=== PATIENT | female | born 1985 | race Caucasian/White ===

== ENCOUNTER 2020-08-14 12:39 | Outpatient (CLI) | payer MEDICAID | END 2020-08-14 23:59 | disposition home or self-care (01) | LOC: WOUND 12:39 | PROVIDERS: ATTEND Internal Medicine | DX: S81.831A Puncture wound without foreign body, right lower leg, initial encounter (principal); L97.212 Non-pressure chronic ulcer of right calf with fat layer exposed; I89.0 Lymphedema, not elsewhere classified; L84 Corns and callosities; E66.01 Morbid (severe) obesity due to excess calories; Z68.44 Body mass index [BMI] 60.0-69.9, adult; Z91.19 Patient's noncompliance with other medical treatment and regimen; X58.XXXA Exposure to other specified factors, initial encounter; Y93.89 Activity, other specified; Y92.89 Other specified places as the place of occurrence of the external cause; Y99.8 Other external cause status | CPT/HCPCS: 97597; 97598; 99205 ==

== ENCOUNTER → 2020-08-21 | Outpatient (CLI) | payer MEDICAID | END | disposition home or self-care (01) | LOC: WOUND 13:03 | PROVIDERS: ATTEND Internal Medicine | DX: S81.831D Puncture wound without foreign body, right lower leg, subsequent encounter (principal); L97.212 Non-pressure chronic ulcer of right calf with fat layer exposed; I89.0 Lymphedema, not elsewhere classified; E66.01 Morbid (severe) obesity due to excess calories; Z68.44 Body mass index [BMI] 60.0-69.9, adult; X58.XXXD Exposure to other specified factors, subsequent encounter | CPT/HCPCS: 97597; 97598 ==

== ENCOUNTER → 2020-08-28 | Outpatient (CLI) | payer MEDICAID | END | disposition home or self-care (01) | LOC: WOUND 12:47 | PROVIDERS: ATTEND Internal Medicine | DX: S81.831D Puncture wound without foreign body, right lower leg, subsequent encounter (principal); L97.212 Non-pressure chronic ulcer of right calf with fat layer exposed; I89.0 Lymphedema, not elsewhere classified; L84 Corns and callosities; E66.01 Morbid (severe) obesity due to excess calories; Z68.44 Body mass index [BMI] 60.0-69.9, adult; Z91.19 Patient's noncompliance with other medical treatment and regimen; X58.XXXD Exposure to other specified factors, subsequent encounter | CPT/HCPCS: 97597; 97598 ==

== ENCOUNTER 2020-09-04 12:44 | Outpatient (CLI) | payer MEDICAID | END 2020-09-04 23:59 | disposition home or self-care (01) | LOC: WOUND 12:44 | PROVIDERS: ATTEND Internal Medicine | DX: S81.831D Puncture wound without foreign body, right lower leg, subsequent encounter (principal); L97.212 Non-pressure chronic ulcer of right calf with fat layer exposed; I89.0 Lymphedema, not elsewhere classified; L84 Corns and callosities; E66.01 Morbid (severe) obesity due to excess calories; Z68.44 Body mass index [BMI] 60.0-69.9, adult; Z91.19 Patient's noncompliance with other medical treatment and regimen; X58.XXXD Exposure to other specified factors, subsequent encounter | CPT/HCPCS: 97597; 97598 ==

== ENCOUNTER 2020-09-11 12:44 | Outpatient (CLI) | payer MEDICAID | END 2020-09-11 23:59 | disposition home or self-care (01) | LOC: WOUND 12:44 | PROVIDERS: ATTEND Internal Medicine | DX: S81.831D Puncture wound without foreign body, right lower leg, subsequent encounter (principal); L97.212 Non-pressure chronic ulcer of right calf with fat layer exposed; I89.0 Lymphedema, not elsewhere classified; L84 Corns and callosities; E66.01 Morbid (severe) obesity due to excess calories; Z68.44 Body mass index [BMI] 60.0-69.9, adult; Z91.19 Patient's noncompliance with other medical treatment and regimen; X58.XXXD Exposure to other specified factors, subsequent encounter | CPT/HCPCS: 97597; 97598 ==

== ENCOUNTER → 2020-09-25 | Outpatient (CLI) | payer MEDICAID | END | disposition home or self-care (01) | LOC: WOUND 13:19 | PROVIDERS: ATTEND Internal Medicine | DX: S81.831D Puncture wound without foreign body, right lower leg, subsequent encounter (principal); L97.212 Non-pressure chronic ulcer of right calf with fat layer exposed; I89.0 Lymphedema, not elsewhere classified; L84 Corns and callosities; E66.01 Morbid (severe) obesity due to excess calories; Z68.44 Body mass index [BMI] 60.0-69.9, adult; Z91.19 Patient's noncompliance with other medical treatment and regimen; X58.XXXD Exposure to other specified factors, subsequent encounter | CPT/HCPCS: 97597; 97598 ==

== ENCOUNTER → 2020-09-29 | Outpatient (CLI) | payer MEDICAID | END | disposition home or self-care (01) | LOC: WOUND 08:03 | PROVIDERS: ATTEND Internal Medicine | DX: S81.831D Puncture wound without foreign body, right lower leg, subsequent encounter (principal); L97.212 Non-pressure chronic ulcer of right calf with fat layer exposed; I89.0 Lymphedema, not elsewhere classified; L84 Corns and callosities; E66.01 Morbid (severe) obesity due to excess calories; Z68.44 Body mass index [BMI] 60.0-69.9, adult; Z91.19 Patient's noncompliance with other medical treatment and regimen; X58.XXXD Exposure to other specified factors, subsequent encounter | CPT/HCPCS: 97606 ==

== ENCOUNTER 2020-10-02 08:06 | Outpatient (CLI) | payer MEDICAID | END 2020-10-02 23:59 | disposition home or self-care (01) | LOC: WOUND 08:06 | PROVIDERS: ATTEND Internal Medicine | DX: S81.831D Puncture wound without foreign body, right lower leg, subsequent encounter (principal); L97.212 Non-pressure chronic ulcer of right calf with fat layer exposed; I89.0 Lymphedema, not elsewhere classified; L84 Corns and callosities; E66.01 Morbid (severe) obesity due to excess calories; Z68.44 Body mass index [BMI] 60.0-69.9, adult; Z91.19 Patient's noncompliance with other medical treatment and regimen; X58.XXXD Exposure to other specified factors, subsequent encounter | CPT/HCPCS: 97597; 97598 ==

== ENCOUNTER → 2020-10-04 | Outpatient (CLI) | payer MEDICAID | END | disposition home or self-care (01) | LOC: WOUND 08:07 | PROVIDERS: ATTEND Internal Medicine | DX: S81.831D Puncture wound without foreign body, right lower leg, subsequent encounter (principal); L97.212 Non-pressure chronic ulcer of right calf with fat layer exposed; I89.0 Lymphedema, not elsewhere classified; L84 Corns and callosities; E66.01 Morbid (severe) obesity due to excess calories; Z68.44 Body mass index [BMI] 60.0-69.9, adult; Z91.19 Patient's noncompliance with other medical treatment and regimen; X58.XXXD Exposure to other specified factors, subsequent encounter | CPT/HCPCS: 97606 ==

== ENCOUNTER 2020-10-06 08:04 | Outpatient (CLI) | payer MEDICAID | END 2020-10-06 23:59 | disposition home or self-care (01) | LOC: WOUND 08:04 | PROVIDERS: ATTEND Internal Medicine | DX: S81.831D Puncture wound without foreign body, right lower leg, subsequent encounter (principal); L97.212 Non-pressure chronic ulcer of right calf with fat layer exposed; L97.822 Non-pressure chronic ulcer of other part of left lower leg with fat layer exposed; I89.0 Lymphedema, not elsewhere classified; L84 Corns and callosities; E66.01 Morbid (severe) obesity due to excess calories; I87.8 Other specified disorders of veins; Z68.44 Body mass index [BMI] 60.0-69.9, adult; Z91.19 Patient's noncompliance with other medical treatment and regimen; X58.XXXD Exposure to other specified factors, subsequent encounter | CPT/HCPCS: 97606; 99214 ==

== ENCOUNTER 2020-10-09 08:30 | Outpatient (CLI) | payer MEDICAID | END 2020-10-09 23:59 | disposition home or self-care (01) | LOC: WOUND 08:30 | PROVIDERS: ATTEND Internal Medicine | DX: S81.831D Puncture wound without foreign body, right lower leg, subsequent encounter (principal); L97.212 Non-pressure chronic ulcer of right calf with fat layer exposed; I89.0 Lymphedema, not elsewhere classified; L84 Corns and callosities; E66.01 Morbid (severe) obesity due to excess calories; Z68.44 Body mass index [BMI] 60.0-69.9, adult; Z91.19 Patient's noncompliance with other medical treatment and regimen; X58.XXXD Exposure to other specified factors, subsequent encounter | CPT/HCPCS: 97597; 97598 ==

== ENCOUNTER → 2020-10-16 | Outpatient (CLI) | payer MEDICAID | END | disposition home or self-care (01) | LOC: WOUND 08:19 | PROVIDERS: ATTEND Internal Medicine | DX: S81.831D Puncture wound without foreign body, right lower leg, subsequent encounter (principal); L97.212 Non-pressure chronic ulcer of right calf with fat layer exposed; L97.822 Non-pressure chronic ulcer of other part of left lower leg with fat layer exposed; I89.0 Lymphedema, not elsewhere classified; I87.8 Other specified disorders of veins; L84 Corns and callosities; E66.01 Morbid (severe) obesity due to excess calories; Z68.44 Body mass index [BMI] 60.0-69.9, adult; Z91.19 Patient's noncompliance with other medical treatment and regimen; X58.XXXD Exposure to other specified factors, subsequent encounter | CPT/HCPCS: 87070; 87075; 87077; 87147; 87205; 97597; 97598 ==

== ENCOUNTER 2020-10-23 09:10 | Inpatient (IN) | payer MEDICAID ==
[~2020-10-23] VITALS: Ht 182.9 cm; Wt 227.0 kg
[2020-10-23 11:05] LABS: BASOPHILS % (AUTO) 1 % (0-1); EOSINOPHILS % (AUTO) 1 % (1-7); LYMPHOCYTES % (AUTO) 23 % (22-44); MEAN CORPUSCULAR HEMOGLOBIN 29.7 pg (27.0-34.8); MEAN CORPUSCULAR HGB CONC 33.2 g/dL (32.4-35.8); MEAN PLATELET VOLUME 8.1 fL (7.4-10.4); MONOCYTES % (AUTO) 6 % (2-9); NEUTROPHILS % (AUTO) 69 % (42-75); PLATELET COUNT 273 x10^3/uL (130-400); RED BLOOD COUNT 3.94 x10^6/uL (3.82-5.3); RED CELL DISTRIBUTION WIDTH 15.5 % (9.6-15.2)
[2020-10-23 11:14] LABS: ALBUMIN 3.7 g/dL (3.4-5.0); ANION GAP 7 mmol/L (5-15); CALCIUM 9.8 mg/dL (8.5-10.1); CHLORIDE 110 mmol/L (98-107)
--- NOTE | 2020-10-23 11:25 | NUR ---
RESIDENTIAL SERVICE TECHNICIAN: PT AMBULATORY TO ROOM FROM LOBBY AT THIS TIME
--- NOTE | 2020-10-23 12:10 | NUR ---
MD Bauer to bedside for eval.
[2020-10-23] MEDS ORDERED: CLINDAMYCIN PMX 600MG/50ML 50 ML ONE ×2 (12:27→12:35)
[2020-10-23] MEDS ORDERED: PIPERACILLIN/TAZO 3.375 GM in DEXTROSE 5% 50 ML IVPB ONE (12:30)
[2020-10-23] MEDS ORDERED: CLINDAMYCIN PMX 600MG/50ML 50 ML IVPB ONE (12:30)
[2020-10-23] MEDS ORDERED: SODIUM CHLORIDE FLUSH 10ML SYR IVF PRN (13:00)
[2020-10-23 13:34] VITALS: BP 125/85
[2020-10-23 13:43] VITALS: BP 125/85
[2020-10-23] MEDS: PIPERACILLIN/TAZO 4.5 GM in DEXTROSE 5% 100 ML IVPB SCH ×2 (14:05→20:15)
[2020-10-23] MEDS ORDERED: FURO20TA3 PO (14:18)
[2020-10-23] MEDS ORDERED: ACET500T76 PO (14:18)
[2020-10-23] MEDS ORDERED: GABA600T7 PO (14:18)
[2020-10-23] MEDS ORDERED: BACL-19 PO (14:18)
[2020-10-23] MEDS ORDERED: IBUP-1222 PO (14:18)
[2020-10-23] MEDS ORDERED: BUSP10TA PO (14:32)
[2020-10-23] MEDS ORDERED: DICL50TA4 PO (14:32)
[2020-10-23] MEDS ORDERED: HYDR1TAB53 PO (14:32)
[2020-10-23] MEDS ORDERED: POLYETHYLENE GLYCOL 17 GM PACKET PO PRN (15:30)
[2020-10-23] MEDS ORDERED: MELATONIN 5 MG TABLET PO PRN (15:30)
[2020-10-23] MEDS ORDERED: ONDANSETRON 2MG/ML, 2ML IVPush PRN (15:30)
[2020-10-23] MEDS: ENOXAPARIN 30 MG/0.3 ML SQ SCH (16:10)
[2020-10-23] MEDS: BACLOFEN 10 MG TABLET PO SCH ×2 (16:10→20:23)
[2020-10-23] MEDS: BUSPIRONE 10 MG TABLET PO SCH ×2 (16:10→20:23)
[2020-10-23] MEDS: HYDROcodone/APAP 10/325 MG TABLET PO PRN (16:10)
[2020-10-23] MEDS: GABAPENTIN 300 MG CAPSULE PO SCH ×2 (16:10→20:23)
[2020-10-23 19:44] VITALS: BP 143/82
[2020-10-23] MEDS: IBUPROFEN 600 MG TABLET PO PRN (20:32)
[2020-10-23] MEDS: ACETAMINOPHEN 325 MG TABLET PO PRN (20:32)
[2020-10-24 00:25] VITALS: BP 134/88
[2020-10-24] MEDS: HYDROcodone/APAP 10/325 MG TABLET PO PRN ×2 (00:28→07:33)
[2020-10-24] MEDS: PIPERACILLIN/TAZO 4.5 GM in DEXTROSE 5% 100 ML IVPB SCH ×4 (02:39→21:00)
[2020-10-24] MEDS: ENOXAPARIN 30 MG/0.3 ML SQ SCH ×2 (04:00→16:00)
[2020-10-24] MEDS: KETOROLAC 30 MG/1 ML IV PRN (04:09)
[2020-10-24 06:56] VITALS: BP 107/73
[2020-10-24] MEDS: GABAPENTIN 300 MG CAPSULE PO SCH ×3 (08:37→21:00)
[2020-10-24] MEDS: SENNA/DOCUSATE TABLET PO SCH (08:37)
[2020-10-24] MEDS: BACLOFEN 10 MG TABLET PO SCH ×3 (08:37→21:00)
[2020-10-24] MEDS: BUSPIRONE 10 MG TABLET PO SCH ×3 (08:37→21:00)
[2020-10-24] MEDS: IBUPROFEN 600 MG TABLET PO PRN (08:56)
[2020-10-24] MEDS: ACETAMINOPHEN 325 MG TABLET PO PRN ×3 (08:56→16:32)
[2020-10-24] MEDS ORDERED: FUROSEMIDE 20 MG TABLET PO SCH (09:00)
[2020-10-24 12:52] VITALS: BP 114/68
[2020-10-24] MEDS: FUROSEMIDE 40 MG/4 ML IV SCH (16:33)
[2020-10-24 20:56] VITALS: BP 132/84
[2020-10-25] MEDS: PIPERACILLIN/TAZO 4.5 GM in DEXTROSE 5% 100 ML IVPB SCH ×4 (00:45→18:25)
[2020-10-25 01:23] VITALS: BP 111/70
[2020-10-25] MEDS: ENOXAPARIN 30 MG/0.3 ML SQ SCH ×2 (04:00→16:00)
[2020-10-25 05:39] LABS: CALCIUM 8.6 mg/dL (8.5-10.1); CHLORIDE 111 mmol/L (98-107)
[2020-10-25 05:42] LABS: ANION GAP 8 mmol/L (5-15); CREATININE 0.79 mg/dL (0.55-1.02)
[2020-10-25 07:07] VITALS: BP 143/73
[2020-10-25] MEDS: GABAPENTIN 300 MG CAPSULE PO SCH ×3 (08:05→20:19)
[2020-10-25] MEDS: ACETAMINOPHEN 325 MG TABLET PO PRN ×2 (08:05→16:59)
[2020-10-25] MEDS: BUSPIRONE 10 MG TABLET PO SCH ×3 (08:06→20:19)
[2020-10-25] MEDS: SENNA/DOCUSATE TABLET PO SCH (08:06)
[2020-10-25] MEDS: FUROSEMIDE 40 MG/4 ML IV SCH ×2 (08:06→17:00)
[2020-10-25] MEDS: BACLOFEN 10 MG TABLET PO SCH ×3 (08:06→20:19)
[2020-10-25] MEDS: POTASSIUM CHLORIDE 20 MEQ TAB.ER.PRT PO SCH ×3 (08:06→16:59)
[2020-10-25] MEDS: KETOROLAC 30 MG/1 ML IV PRN (08:06)
[2020-10-25 13:26] VITALS: BP 135/80
[2020-10-25 20:09] VITALS: BP 134/83
[2020-10-26] MEDS: ENOXAPARIN 30 MG/0.3 ML SQ SCH ×2 (00:15→11:57)
[2020-10-26] MEDS: PIPERACILLIN/TAZO 4.5 GM in DEXTROSE 5% 100 ML IVPB SCH ×2 (00:15→06:30)
[2020-10-26 00:20] VITALS: BP 100/65
[2020-10-26 05:53] LABS: ANION GAP 5 mmol/L (5-15); CALCIUM 8.7 mg/dL (8.5-10.1); CHLORIDE 112 mmol/L (98-107)
[2020-10-26 07:16] VITALS: BP 108/71
[2020-10-26] MEDS: FUROSEMIDE 40 MG/4 ML IV SCH ×2 (09:07→16:45)
[2020-10-26] MEDS: POTASSIUM CHLORIDE 20 MEQ TAB.ER.PRT PO SCH ×3 (09:07→16:45)
[2020-10-26] MEDS: GABAPENTIN 300 MG CAPSULE PO SCH ×3 (09:07→19:58)
[2020-10-26] MEDS: ACETAMINOPHEN 325 MG TABLET PO PRN ×2 (09:07→16:45)
[2020-10-26] MEDS: IBUPROFEN 600 MG TABLET PO PRN ×2 (09:07→16:45)
[2020-10-26] MEDS: SENNA/DOCUSATE TABLET PO SCH ×2 (09:07→09:12)
[2020-10-26] MEDS: BUSPIRONE 10 MG TABLET PO SCH ×3 (09:08→19:58)
[2020-10-26] MEDS: BACLOFEN 10 MG TABLET PO SCH ×3 (09:09→19:58)
[2020-10-26] MEDS: KETOROLAC 30 MG/1 ML IV PRN (10:46)
[2020-10-26] MEDS ORDERED: MEROPENEM 1 GM in SODIUM CHLORIDE 0.9% 100 ML IV SCH (11:00)
[2020-10-26] MEDS: MEROPENEM 2 GM in SODIUM CHLORIDE 0.9% 100 ML IV SCH ×2 (11:57→19:57)
[2020-10-26 13:10] VITALS: BP 135/91
[2020-10-26 20:03] VITALS: BP 138/88
[2020-10-27 01:23] VITALS: BP 104/69
[2020-10-27] MEDS: ACETAMINOPHEN 325 MG TABLET PO PRN ×2 (02:23→12:54)
[2020-10-27] MEDS: IBUPROFEN 600 MG TABLET PO PRN ×2 (02:23→12:54)
[2020-10-27] MEDS: MEROPENEM 2 GM in SODIUM CHLORIDE 0.9% 100 ML IV SCH ×3 (03:20→19:54)
[2020-10-27] MEDS: ENOXAPARIN 30 MG/0.3 ML SQ SCH ×2 (03:23→15:38)
[2020-10-27 04:32] LABS: HCT (SEDRATE) 31.8 % (34.6-47.8)
[2020-10-27 04:43] LABS: ANION GAP 8 mmol/L (5-15); CALCIUM 8.6 mg/dL (8.5-10.1); CHLORIDE 108 mmol/L (98-107); CREATININE 0.79 mg/dL (0.55-1.02)
[2020-10-27 04:50] LABS: C-REACTIVE PROTEIN, QUANT 1.9 mg/dL (0.02-0.49)
[2020-10-27 06:25] VITALS: BP 116/74
[2020-10-27] MEDS: GABAPENTIN 300 MG CAPSULE PO SCH ×3 (07:53→19:54)
[2020-10-27] MEDS: POTASSIUM CHLORIDE 20 MEQ TAB.ER.PRT PO SCH ×3 (07:53→16:45)
[2020-10-27] MEDS: FUROSEMIDE 40 MG/4 ML IV SCH ×2 (07:53→16:46)
[2020-10-27] MEDS: BACLOFEN 10 MG TABLET PO SCH ×3 (07:53→19:54)
[2020-10-27] MEDS: SENNA/DOCUSATE TABLET PO SCH (07:53)
[2020-10-27] MEDS: BUSPIRONE 10 MG TABLET PO SCH ×3 (07:53→19:54)
[2020-10-27 13:52] VITALS: BP 110/71
[2020-10-27] MEDS ORDERED: DIAPER RASH/ZINC OXIDE PASTE 40%, 56GM TP PRN (15:30)
[2020-10-27 19:10] VITALS: BP 99/66
[2020-10-28 00:12] VITALS: BP 117/78
[2020-10-28] MEDS: ENOXAPARIN 30 MG/0.3 ML SQ SCH ×2 (04:00→15:29)
[2020-10-28] MEDS: MEROPENEM 2 GM in SODIUM CHLORIDE 0.9% 100 ML IV SCH ×3 (04:13→22:06)
[2020-10-28 07:15] VITALS: BP 129/78
[2020-10-28] MEDS: GABAPENTIN 300 MG CAPSULE PO SCH ×3 (07:47→21:31)
[2020-10-28] MEDS: BACLOFEN 10 MG TABLET PO SCH ×3 (07:47→21:31)
[2020-10-28] MEDS: POTASSIUM CHLORIDE 20 MEQ TAB.ER.PRT PO SCH ×3 (07:47→17:06)
[2020-10-28] MEDS: BUSPIRONE 10 MG TABLET PO SCH ×3 (07:48→21:31)
[2020-10-28] MEDS: FUROSEMIDE 40 MG/4 ML IV SCH ×2 (07:48→17:06)
[2020-10-28] MEDS: metFORMIN XR 500 MG TAB.ER.24H PO SCH (07:48)
[2020-10-28] MEDS: SENNA/DOCUSATE TABLET PO SCH (07:48)
[2020-10-28] MEDS: ACETAMINOPHEN 325 MG TABLET PO PRN (08:30)
[2020-10-28] MEDS: IBUPROFEN 600 MG TABLET PO PRN ×2 (08:30→21:31)
[2020-10-28] MEDS ORDERED: CHOLESTYRAMINE LIGHT 4GM PACKET PO SCH (09:00)
[2020-10-28 09:37] LABS: ANION GAP 6 mmol/L (5-15); CALCIUM 9.7 mg/dL (8.5-10.1); CHLORIDE 107 mmol/L (98-107); CREATININE 0.91 mg/dL (0.55-1.02)
[2020-10-28] MEDS ORDERED: PINK BISMUTH 87.33 MG/5 ML ORAL SUSP PO PRN (12:00)
[2020-10-28 13:34] VITALS: BP 138/73
[2020-10-28 19:27] VITALS: BP 135/83
[2020-10-29 01:10] VITALS: BP 121/72
[2020-10-29] MEDS: ENOXAPARIN 30 MG/0.3 ML SQ SCH ×2 (03:14→16:00)
[2020-10-29] MEDS: MEROPENEM 2 GM in SODIUM CHLORIDE 0.9% 100 ML IV SCH ×3 (06:42→21:59)
[2020-10-29 07:00] VITALS: BP 105/61
[2020-10-29] MEDS: POTASSIUM CHLORIDE 20 MEQ TAB.ER.PRT PO SCH ×3 (07:51→16:02)
[2020-10-29] MEDS: BUSPIRONE 10 MG TABLET PO SCH ×3 (07:51→21:59)
[2020-10-29] MEDS: FUROSEMIDE 40 MG/4 ML IV SCH ×2 (07:51→16:02)
[2020-10-29] MEDS: SENNA/DOCUSATE TABLET PO SCH (07:51)
[2020-10-29] MEDS: BACLOFEN 10 MG TABLET PO SCH ×3 (07:52→21:59)
[2020-10-29] MEDS: metFORMIN XR 500 MG TAB.ER.24H PO SCH (07:52)
[2020-10-29] MEDS: GABAPENTIN 300 MG CAPSULE PO SCH ×3 (07:52→21:59)
[2020-10-29] MEDS: IBUPROFEN 600 MG TABLET PO PRN (08:00)
[2020-10-29] MEDS: ACETAMINOPHEN 325 MG TABLET PO PRN ×2 (08:01→14:22)
[2020-10-29 12:20] LABS: ANION GAP 6 mmol/L (5-15); CALCIUM 9.5 mg/dL (8.5-10.1); CHLORIDE 106 mmol/L (98-107); CREATININE 0.86 mg/dL (0.55-1.02)
[2020-10-29 15:44] VITALS: BP 116/68
[2020-10-29 19:59] VITALS: BP 132/84
[2020-10-30 02:13] VITALS: BP 106/71
[2020-10-30] MEDS: ENOXAPARIN 30 MG/0.3 ML SQ SCH ×2 (03:21→16:00)
[2020-10-30] MEDS: MEROPENEM 2 GM in SODIUM CHLORIDE 0.9% 100 ML IV SCH ×2 (05:54→17:35)
[2020-10-30 06:01] LABS: HCT (SEDRATE) 34.6 % (34.6-47.8)
[2020-10-30 06:06] LABS: CHLORIDE 104 mmol/L (98-107)
[2020-10-30 06:19] LABS: BASOPHILS % (AUTO) 0 % (0-1); EOSINOPHILS % (AUTO) 4 % (1-7); LYMPHOCYTES % (AUTO) 25 % (22-44); MEAN CORPUSCULAR HEMOGLOBIN 30.1 pg (27.0-34.8); MEAN CORPUSCULAR HGB CONC 33.7 g/dL (32.4-35.8); MEAN PLATELET VOLUME 8.4 fL (7.4-10.4); MONOCYTES % (AUTO) 11 % (2-9); NEUTROPHILS % (AUTO) 61 % (42-75); PLATELET COUNT 256 x10^3/uL (130-400); RED CELL DISTRIBUTION WIDTH 15.4 % (9.6-15.2)
[2020-10-30 06:26] LABS: ALANINE AMINOTRANSFERASE 121 U/L (12-78); ALBUMIN 3.5 g/dL (3.4-5.0); ALKALINE PHOSPHATASE 108 U/L (45-117); ANION GAP 5 mmol/L (5-15); BILIRUBIN,TOTAL 0.3 mg/dL (0.2-1.0); CREATININE 0.88 mg/dL (0.55-1.02); TOTAL PROTEIN 7.6 g/dL (6.4-8.2)
[2020-10-30 06:53] VITALS: BP 128/81
[2020-10-30] MEDS: FUROSEMIDE 40 MG/4 ML IV SCH ×2 (08:53→16:38)
[2020-10-30] MEDS: metFORMIN XR 500 MG TAB.ER.24H PO SCH (08:53)
[2020-10-30] MEDS: POTASSIUM CHLORIDE 20 MEQ TAB.ER.PRT PO SCH ×3 (08:53→16:38)
[2020-10-30] MEDS: BUSPIRONE 10 MG TABLET PO SCH ×3 (08:54→22:04)
[2020-10-30] MEDS: SENNA/DOCUSATE TABLET PO SCH (08:54)
[2020-10-30] MEDS: GABAPENTIN 300 MG CAPSULE PO SCH ×3 (08:54→22:04)
[2020-10-30] MEDS: BACLOFEN 10 MG TABLET PO SCH ×3 (08:54→22:04)
[2020-10-30 15:43] VITALS: BP 117/82
[2020-10-30 19:32] VITALS: BP 119/78
[2020-10-31 00:53] VITALS: BP 142/76
[2020-10-31] MEDS: MEROPENEM 2 GM in SODIUM CHLORIDE 0.9% 100 ML IV SCH ×3 (01:09→18:35)
[2020-10-31] MEDS: ENOXAPARIN 30 MG/0.3 ML SQ SCH ×2 (04:00→16:00)
[2020-10-31 05:15] LABS: ANION GAP 6 mmol/L (5-15); CHLORIDE 104 mmol/L (98-107)
[2020-10-31 05:16] LABS: CREATININE 0.93 mg/dL (0.55-1.02)
[2020-10-31 07:37] VITALS: BP 142/89
[2020-10-31] MEDS: FUROSEMIDE 40 MG/4 ML IV SCH ×2 (08:08→17:11)
[2020-10-31] MEDS: metFORMIN XR 500 MG TAB.ER.24H PO SCH (08:09)
[2020-10-31] MEDS: POTASSIUM CHLORIDE 20 MEQ TAB.ER.PRT PO SCH ×3 (08:09→17:11)
[2020-10-31] MEDS: SENNA/DOCUSATE TABLET PO SCH (09:00)
[2020-10-31] MEDS: BUSPIRONE 10 MG TABLET PO SCH ×3 (09:48→21:18)
[2020-10-31] MEDS: GABAPENTIN 300 MG CAPSULE PO SCH ×3 (09:49→21:18)
[2020-10-31] MEDS: BACLOFEN 10 MG TABLET PO SCH ×3 (09:49→21:18)
[2020-10-31 12:18] VITALS: BP 118/80
[2020-10-31] MEDS: IBUPROFEN 600 MG TABLET PO PRN (15:57)
[2020-10-31] MEDS: ACETAMINOPHEN 325 MG TABLET PO PRN (15:57)
[2020-10-31 18:59] VITALS: BP 105/75
[2020-11-01 00:23] VITALS: BP 121/84
[2020-11-01] MEDS: MEROPENEM 2 GM in SODIUM CHLORIDE 0.9% 100 ML IV SCH ×3 (02:23→19:40)
[2020-11-01] MEDS: ENOXAPARIN 30 MG/0.3 ML SQ SCH ×2 (03:52→16:00)
[2020-11-01 07:31] VITALS: BP 119/70
[2020-11-01] MEDS: metFORMIN XR 500 MG TAB.ER.24H PO SCH (08:11)
[2020-11-01] MEDS: SENNA/DOCUSATE TABLET PO SCH (09:00)
[2020-11-01] MEDS: BACLOFEN 10 MG TABLET PO SCH ×3 (09:05→19:40)
[2020-11-01] MEDS: GABAPENTIN 300 MG CAPSULE PO SCH ×3 (09:05→19:40)
[2020-11-01] MEDS: BUSPIRONE 10 MG TABLET PO SCH ×3 (09:05→19:40)
[2020-11-01 12:25] VITALS: BP 135/88
[2020-11-01] MEDS: ACETAMINOPHEN 325 MG TABLET PO PRN (16:44)
[2020-11-01] MEDS: IBUPROFEN 600 MG TABLET PO PRN (16:44)
[2020-11-01 19:08] VITALS: BP 135/85
[2020-11-02 02:44] VITALS: BP 107/75
[2020-11-02] MEDS: MEROPENEM 2 GM in SODIUM CHLORIDE 0.9% 100 ML IV SCH ×3 (03:11→21:36)
[2020-11-02] MEDS: ENOXAPARIN 30 MG/0.3 ML SQ SCH ×2 (03:27→16:00)
[2020-11-02 07:54] VITALS: BP 117/74
[2020-11-02] MEDS: SENNA/DOCUSATE TABLET PO SCH (09:00)
[2020-11-02] MEDS: GABAPENTIN 300 MG CAPSULE PO SCH ×3 (10:10→21:21)
[2020-11-02] MEDS: metFORMIN XR 500 MG TAB.ER.24H PO SCH (10:10)
[2020-11-02] MEDS: BACLOFEN 10 MG TABLET PO SCH ×3 (10:11→21:21)
[2020-11-02] MEDS: BUSPIRONE 10 MG TABLET PO SCH ×3 (10:46→21:21)
[2020-11-02 13:52] VITALS: BP 139/82
[2020-11-02 19:58] VITALS: BP 110/66
[2020-11-02] MEDS: IBUPROFEN 600 MG TABLET PO PRN (21:26)
[2020-11-02] MEDS: ACETAMINOPHEN 325 MG TABLET PO PRN (21:26)
[2020-11-03 01:17] VITALS: BP 94/66
[2020-11-03] MEDS: ENOXAPARIN 30 MG/0.3 ML SQ SCH ×2 (04:00→15:42)
[2020-11-03 07:19] VITALS: BP 114/73
[2020-11-03] MEDS: MEROPENEM 2 GM in SODIUM CHLORIDE 0.9% 100 ML IV SCH ×3 (07:21→23:26)
[2020-11-03] MEDS: metFORMIN XR 500 MG TAB.ER.24H PO SCH (08:03)
[2020-11-03] MEDS: ACETAMINOPHEN 325 MG TABLET PO PRN (08:03)
[2020-11-03] MEDS: BACLOFEN 10 MG TABLET PO SCH ×3 (08:04→21:00)
[2020-11-03] MEDS: SENNA/DOCUSATE TABLET PO SCH (08:04)
[2020-11-03] MEDS: IBUPROFEN 600 MG TABLET PO PRN (08:04)
[2020-11-03] MEDS: GABAPENTIN 300 MG CAPSULE PO SCH ×3 (08:04→21:00)
[2020-11-03] MEDS: BUSPIRONE 10 MG TABLET PO SCH ×3 (08:04→21:00)
[2020-11-03 13:52] VITALS: BP 125/71
[2020-11-03 19:25] VITALS: BP 112/77
[2020-11-04] MEDS: ENOXAPARIN 30 MG/0.3 ML SQ SCH ×2 (03:42→15:10)
[2020-11-04 04:22] VITALS: BP 119/79
[2020-11-04 07:33] VITALS: BP 129/81
[2020-11-04] MEDS: MEROPENEM 2 GM in SODIUM CHLORIDE 0.9% 100 ML IV SCH ×3 (07:59→23:44)
[2020-11-04] MEDS: GABAPENTIN 300 MG CAPSULE PO SCH ×3 (08:02→21:53)
[2020-11-04] MEDS: BACLOFEN 10 MG TABLET PO SCH ×3 (08:03→21:53)
[2020-11-04] MEDS: metFORMIN XR 500 MG TAB.ER.24H PO SCH (08:03)
[2020-11-04] MEDS: BUSPIRONE 10 MG TABLET PO SCH ×3 (08:03→21:53)
[2020-11-04] MEDS: SENNA/DOCUSATE TABLET PO SCH (08:03)
[2020-11-04 14:16] VITALS: BP 103/65
[2020-11-04 20:03] VITALS: BP 135/88
[2020-11-05 02:03] VITALS: BP 108/71
[2020-11-05] MEDS: ENOXAPARIN 30 MG/0.3 ML SQ SCH ×2 (03:57→15:29)
[2020-11-05 05:23] LABS: CREATININE 0.68 mg/dL (0.55-1.02)
[2020-11-05 07:17] VITALS: BP 96/64
[2020-11-05] MEDS: MEROPENEM 2 GM in SODIUM CHLORIDE 0.9% 100 ML IV SCH ×3 (08:03→23:40)
[2020-11-05] MEDS: GABAPENTIN 300 MG CAPSULE PO SCH ×3 (08:06→20:44)
[2020-11-05] MEDS: metFORMIN XR 500 MG TAB.ER.24H PO SCH (08:06)
[2020-11-05] MEDS: BUSPIRONE 10 MG TABLET PO SCH ×3 (08:06→20:45)
[2020-11-05] MEDS: BACLOFEN 10 MG TABLET PO SCH ×3 (08:06→20:45)
[2020-11-05] MEDS: SENNA/DOCUSATE TABLET PO SCH (08:07)
[2020-11-05 20:46] VITALS: BP 126/75
[2020-11-06 01:04] VITALS: BP 106/69
[2020-11-06] MEDS: ENOXAPARIN 30 MG/0.3 ML SQ SCH ×2 (03:52→16:00)
[2020-11-06 07:36] VITALS: BP 100/68
[2020-11-06] MEDS: SENNA/DOCUSATE TABLET PO SCH (07:51)
[2020-11-06] MEDS: BUSPIRONE 10 MG TABLET PO SCH ×3 (07:51→20:20)
[2020-11-06] MEDS: metFORMIN XR 500 MG TAB.ER.24H PO SCH (07:51)
[2020-11-06] MEDS: GABAPENTIN 300 MG CAPSULE PO SCH ×3 (07:51→20:20)
[2020-11-06] MEDS: BACLOFEN 10 MG TABLET PO SCH ×3 (07:51→20:20)
[2020-11-06] MEDS: MEROPENEM 2 GM in SODIUM CHLORIDE 0.9% 100 ML IV SCH ×2 (08:54→16:15)
[2020-11-06 13:04] VITALS: BP 135/83
[2020-11-06 19:23] VITALS: BP 127/68
[2020-11-07] MEDS: MEROPENEM 2 GM in SODIUM CHLORIDE 0.9% 100 ML IV SCH ×3 (00:05→15:56)
[2020-11-07 01:10] VITALS: BP 104/66
[2020-11-07] MEDS: ENOXAPARIN 30 MG/0.3 ML SQ SCH ×2 (04:28→15:57)
[2020-11-07] MEDS: SENNA/DOCUSATE TABLET PO SCH (08:05)
[2020-11-07] MEDS: BACLOFEN 10 MG TABLET PO SCH ×3 (08:11→20:07)
[2020-11-07] MEDS: GABAPENTIN 300 MG CAPSULE PO SCH ×3 (08:11→20:07)
[2020-11-07] MEDS: metFORMIN XR 500 MG TAB.ER.24H PO SCH (08:11)
[2020-11-07] MEDS: BUSPIRONE 10 MG TABLET PO SCH ×3 (08:11→20:07)
[2020-11-07] MEDS: IBUPROFEN 600 MG TABLET PO PRN (08:11)
[2020-11-07 08:22] VITALS: BP 118/75
[2020-11-07 14:07] VITALS: BP 113/75
[2020-11-07 19:09] VITALS: BP 136/78
[2020-11-08] MEDS: MEROPENEM 2 GM in SODIUM CHLORIDE 0.9% 100 ML IV SCH ×4 (00:08→23:45)
[2020-11-08 00:49] VITALS: BP 126/83
[2020-11-08] MEDS: ENOXAPARIN 30 MG/0.3 ML SQ SCH ×2 (04:00→15:40)
[2020-11-08 05:50] LABS: CREATININE 0.81 mg/dL (0.55-1.02)
[2020-11-08 06:38] VITALS: BP 124/82
[2020-11-08] MEDS: BACLOFEN 10 MG TABLET PO SCH ×3 (08:36→20:15)
[2020-11-08] MEDS: ACETAMINOPHEN 325 MG TABLET PO PRN (08:36)
[2020-11-08] MEDS: metFORMIN XR 500 MG TAB.ER.24H PO SCH (08:36)
[2020-11-08] MEDS: GABAPENTIN 300 MG CAPSULE PO SCH ×3 (08:36→20:15)
[2020-11-08] MEDS: BUSPIRONE 10 MG TABLET PO SCH ×3 (08:36→20:15)
[2020-11-08] MEDS: IBUPROFEN 600 MG TABLET PO PRN (08:36)
[2020-11-08] MEDS: SENNA/DOCUSATE TABLET PO SCH (08:39)
[2020-11-08 13:22] VITALS: BP 103/67
[2020-11-08 19:10] VITALS: BP 133/90
[2020-11-09 00:20] VITALS: BP 118/74
[2020-11-09 01:10] VITALS: BP 129/80
[2020-11-09] MEDS: ENOXAPARIN 30 MG/0.3 ML SQ SCH ×2 (04:25→15:19)
[2020-11-09 07:40] VITALS: BP 130/83
[2020-11-09] MEDS: BACLOFEN 10 MG TABLET PO SCH ×2 (07:59→15:46)
[2020-11-09] MEDS: GABAPENTIN 300 MG CAPSULE PO SCH ×2 (07:59→15:46)
[2020-11-09] MEDS: metFORMIN XR 500 MG TAB.ER.24H PO SCH (07:59)
[2020-11-09] MEDS: SENNA/DOCUSATE TABLET PO SCH (07:59)
[2020-11-09] MEDS: BUSPIRONE 10 MG TABLET PO SCH ×2 (07:59→15:46)
[2020-11-09] MEDS: MEROPENEM 2 GM in SODIUM CHLORIDE 0.9% 100 ML IV SCH ×2 (07:59→15:46)
[2020-11-09] MEDS ORDERED: METF500T3 PO (08:04)
[2020-11-09 13:52] VITALS: BP 142/83
== END 2020-11-09 17:33 | disposition home or self-care (01) | DRG 383 ==
LOC: ED 12:04 → SUATTDRO 12:32 → 3N 13:30 → ED 15:28
PROVIDERS: ADMIT Internal Medicine; ATTEND Family Medicine
DX: L03.115 Cellulitis of right lower limb (principal); E66.01 Morbid (severe) obesity due to excess calories; B96.5 Pseudomonas (aeruginosa) (mallei) (pseudomallei) as the cause of diseases classified elsewhere; F11.20 Opioid dependence, uncomplicated; F41.9 Anxiety disorder, unspecified; G89.29 Other chronic pain; I87.8 Other specified disorders of veins; I10 Essential (primary) hypertension; L97.219 Non-pressure chronic ulcer of right calf with unspecified severity; L97.229 Non-pressure chronic ulcer of left calf with unspecified severity; Z16.23 Resistance to quinolones and fluoroquinolones; Z16.24 Resistance to multiple antibiotics; Z68.44 Body mass index [BMI] 60.0-69.9, adult; Z16.11 Resistance to penicillins
CPT/HCPCS: 36415; 73590; 84145; 96374; 99285; C8929; 80048; 80053; 82040; 82565; 83036; 83605; 83735; 83880; 84100; 85025; 85651; 86140; 87040; G0378; J1885; J1940; J2185; J2543; Q9957

== ENCOUNTER → 2020-10-23 | Outpatient (CLI) | payer MEDICAID ==
[~2020-10-23] MED LIST: ACET500T76 PO; BACL-19 PO; BUSP10TA PO; DICL50TA4 PO; FURO20TA3 PO; GABA600T7 PO; HYDR1TAB53 PO; IBUP-1222 PO
== END | disposition home or self-care (01) ==
LOC: WOUND 08:14
PROVIDERS: ATTEND Internal Medicine
DX: S81.831D Puncture wound without foreign body, right lower leg, subsequent encounter (principal); L97.821 Non-pressure chronic ulcer of other part of left lower leg limited to breakdown of skin; L97.212 Non-pressure chronic ulcer of right calf with fat layer exposed; I89.0 Lymphedema, not elsewhere classified; I87.8 Other specified disorders of veins; L84 Corns and callosities; E66.01 Morbid (severe) obesity due to excess calories; Z68.44 Body mass index [BMI] 60.0-69.9, adult; Z91.19 Patient's noncompliance with other medical treatment and regimen; X58.XXXD Exposure to other specified factors, subsequent encounter
CPT/HCPCS: 97597; 97598

== ENCOUNTER → 2020-11-13 | Outpatient (CLI) | payer MEDICAID ==
[~2020-11-13] MED LIST changes: +METF500T3 PO
== END | disposition home or self-care (01) ==
LOC: WOUND 08:05
PROVIDERS: ATTEND Internal Medicine
DX: S81.831D Puncture wound without foreign body, right lower leg, subsequent encounter (principal); L97.821 Non-pressure chronic ulcer of other part of left lower leg limited to breakdown of skin; L97.212 Non-pressure chronic ulcer of right calf with fat layer exposed; I89.0 Lymphedema, not elsewhere classified; I87.8 Other specified disorders of veins; L84 Corns and callosities; I10 Essential (primary) hypertension; F11.20 Opioid dependence, uncomplicated; G89.29 Other chronic pain; E66.01 Morbid (severe) obesity due to excess calories; Z68.44 Body mass index [BMI] 60.0-69.9, adult; Z91.19 Patient's noncompliance with other medical treatment and regimen; X58.XXXD Exposure to other specified factors, subsequent encounter
CPT/HCPCS: 29581

== ENCOUNTER 2020-11-20 11:14 | Inpatient (IN) | payer MEDICAID ==
[~2020-11-20] VITALS: Ht 182.9 cm; Wt 226.0 kg
[2020-11-20 12:04] LABS: BASOPHILS % (AUTO) 1 % (0-1); EOSINOPHILS % (AUTO) 1 % (1-7); LYMPHOCYTES % (AUTO) 19 % (22-44); MEAN CORPUSCULAR HEMOGLOBIN 29.8 pg (27.0-34.8); MEAN CORPUSCULAR HGB CONC 33.2 g/dL (32.4-35.8); MEAN PLATELET VOLUME 8.2 fL (7.4-10.4); MONOCYTES % (AUTO) 6 % (2-9); NEUTROPHILS % (AUTO) 73 % (42-75); PLATELET COUNT 257 x10^3/uL (130-400); RED CELL DISTRIBUTION WIDTH 14.5 % (9.6-15.2)
[2020-11-20 12:18] LABS: ALBUMIN 3.2 g/dL (3.4-5.0); ANION GAP 9 mmol/L (5-15); CALCIUM 8.5 mg/dL (8.5-10.1); CHLORIDE 112 mmol/L (98-107); CREATININE 0.89 mg/dL (0.55-1.02)
--- NOTE | 2020-11-20 12:38 | NUR ---
HIM SPECIALIST: PT TO ROOM FROM LOBBY
[2020-11-20] MEDS ORDERED: PIPERACILLIN/TAZO 4.5 GM in DEXTROSE 5% 100 ML IVPB ONE (14:00)
--- NOTE | 2020-11-20 14:07 | NUR ---
PT STATES "[facility] DOES NOT WORK FOR ME, I KNOW IT ISN'T GOING TO FIX THIS." EDMD AWARE. NO NEW ORDERS.
[2020-11-20 15:08] VITALS: BP 164/106
[2020-11-20 15:20] VITALS: BP 141/84
[2020-11-20] MEDS ORDERED: POLYETHYLENE GLYCOL 17 GM PACKET PO PRN (16:00)
[2020-11-20] MEDS ORDERED: ONDANSETRON 2MG/ML, 2ML IVPush PRN (16:00)
[2020-11-20] MEDS ORDERED: ONDANSETRON ODT 4 MG PO PRN (16:00)
[2020-11-20] MEDS: SODIUM CHLORIDE 0.9% 1,000 ML IV SCH (17:42)
[2020-11-20] MEDS: ZINC SULFATE 220 MG CAPSULE PO SCH (17:43)
[2020-11-20] MEDS: MULTIVITAMIN 1 TABLET PO SCH (17:43)
[2020-11-20] MEDS: ENOXAPARIN 30 MG/0.3 ML SQ SCH (17:43)
[2020-11-20] MEDS: MEROPENEM 1 GM in SODIUM CHLORIDE 0.9% 100 ML IV SCH (17:43)
[2020-11-20] MEDS: FUROSEMIDE 40 MG/4 ML IV SCH (17:43)
[2020-11-20] MEDS: ASCORBIC ACID 500 MG TABLET PO SCH (17:43)
[2020-11-20 20:22] VITALS: BP 139/85
[2020-11-20] MEDS: GABAPENTIN 300 MG CAPSULE PO SCH (22:51)
[2020-11-20] MEDS: ACETAMINOPHEN 325 MG TABLET PO PRN (22:52)
[2020-11-21 01:03] VITALS: BP 106/72
[2020-11-21] MEDS: SODIUM CHLORIDE 0.9% 1,000 ML IV SCH ×2 (01:33→07:30)
[2020-11-21] MEDS: MEROPENEM 1 GM in SODIUM CHLORIDE 0.9% 100 ML IV SCH ×3 (01:33→17:03)
[2020-11-21] MEDS: ENOXAPARIN 30 MG/0.3 ML SQ SCH ×2 (03:14→15:07)
[2020-11-21 05:35] LABS: HCT (SEDRATE) 30.4 % (34.6-47.8)
[2020-11-21 05:37] LABS: BASOPHILS % (AUTO) 1 % (0-1); EOSINOPHILS % (AUTO) 3 % (1-7); LYMPHOCYTES % (AUTO) 23 % (22-44); MEAN CORPUSCULAR HEMOGLOBIN 29.9 pg (27.0-34.8); MEAN CORPUSCULAR HGB CONC 33.4 g/dL (32.4-35.8); MEAN PLATELET VOLUME 8.3 fL (7.4-10.4); MONOCYTES % (AUTO) 10 % (2-9); NEUTROPHILS % (AUTO) 64 % (42-75); PLATELET COUNT 212 x10^3/uL (130-400); RED BLOOD COUNT 3.41 x10^6/uL (3.82-5.3); RED CELL DISTRIBUTION WIDTH 14.8 % (9.6-15.2)
[2020-11-21 05:45] LABS: ALANINE AMINOTRANSFERASE 25 U/L (12-78); ALBUMIN 2.8 g/dL (3.4-5.0); ANION GAP 7 mmol/L (5-15); CALCIUM 8.4 mg/dL (8.5-10.1); CHLORIDE 114 mmol/L (98-107)
[2020-11-21 05:51] LABS: ALKALINE PHOSPHATASE 78 U/L (45-117); BILIRUBIN,TOTAL 0.3 mg/dL (0.2-1.0); CREATININE 0.79 mg/dL (0.55-1.02); TOTAL PROTEIN 6.9 g/dL (6.4-8.2)
[2020-11-21 06:30] VITALS: BP 116/87
[2020-11-21] MEDS: HYDROcodone/APAP 5/325 TABLET PO PRN (06:42)
[2020-11-21] MEDS: GABAPENTIN 300 MG CAPSULE PO SCH ×3 (09:35→20:57)
[2020-11-21] MEDS: ZINC SULFATE 220 MG CAPSULE PO SCH (09:36)
[2020-11-21] MEDS: SENNA/DOCUSATE TABLET PO SCH (09:36)
[2020-11-21] MEDS: MULTIVITAMIN 1 TABLET PO SCH (09:36)
[2020-11-21] MEDS: BUSPIRONE 10 MG TABLET PO SCH (09:36)
[2020-11-21] MEDS: FUROSEMIDE 40 MG/4 ML IV SCH (09:36)
[2020-11-21] MEDS: ASCORBIC ACID 500 MG TABLET PO SCH ×2 (09:36→15:25)
[2020-11-21] MEDS: metFORMIN XR 500 MG TAB.ER.24H PO SCH (09:36)
[2020-11-21] MEDS: POTASSIUM CHLORIDE 20 MEQ TAB.ER.PRT PO SCH ×2 (09:40→15:25)
[2020-11-21 13:50] VITALS: BP 104/71
[2020-11-21] MEDS: ACETAMINOPHEN 325 MG TABLET PO PRN ×2 (14:01→20:57)
[2020-11-21 19:17] VITALS: BP 122/79
[2020-11-22 01:05] VITALS: BP 136/82
[2020-11-22] MEDS: MEROPENEM 1 GM in SODIUM CHLORIDE 0.9% 100 ML IV SCH (01:36)
[2020-11-22] MEDS: ENOXAPARIN 30 MG/0.3 ML SQ SCH ×2 (03:53→16:00)
[2020-11-22] MEDS: SENNA/DOCUSATE TABLET PO SCH (08:42)
[2020-11-22] MEDS: GABAPENTIN 300 MG CAPSULE PO SCH ×3 (08:43→21:37)
[2020-11-22] MEDS: metFORMIN XR 500 MG TAB.ER.24H PO SCH (08:43)
[2020-11-22] MEDS: BUSPIRONE 10 MG TABLET PO SCH (08:43)
[2020-11-22] MEDS: MULTIVITAMIN 1 TABLET PO SCH (08:43)
[2020-11-22] MEDS: ASCORBIC ACID 500 MG TABLET PO SCH ×2 (08:44→16:22)
[2020-11-22] MEDS: POTASSIUM CHLORIDE 20 MEQ TAB.ER.PRT PO SCH ×2 (08:44→16:23)
[2020-11-22] MEDS: ZINC SULFATE 220 MG CAPSULE PO SCH (08:44)
[2020-11-22] MEDS: IBUPROFEN 600 MG TABLET PO PRN ×2 (08:49→22:34)
[2020-11-22] MEDS: MEROPENEM 2 GM in SODIUM CHLORIDE 0.9% 100 ML IV SCH ×2 (09:00→16:30)
[2020-11-22 10:05] VITALS: BP 121/80
[2020-11-22] MEDS: FUROSEMIDE 40 MG/4 ML IV SCH (10:10)
[2020-11-22 15:00] VITALS: BP 104/72
[2020-11-22] MEDS: HYDROcodone/APAP 5/325 TABLET PO PRN (21:37)
[2020-11-22 21:53] VITALS: BP 116/76
[2020-11-23 00:41] VITALS: BP 112/74
[2020-11-23] MEDS: MEROPENEM 2 GM in SODIUM CHLORIDE 0.9% 100 ML IV SCH ×3 (00:56→17:30)
[2020-11-23] MEDS: ACETAMINOPHEN 325 MG TABLET PO PRN ×3 (02:24→16:16)
[2020-11-23] MEDS: ENOXAPARIN 30 MG/0.3 ML SQ SCH ×2 (02:53→15:02)
[2020-11-23] MEDS: HYDROcodone/APAP 5/325 TABLET PO PRN ×2 (04:53→11:27)
[2020-11-23] MEDS: BACLOFEN 10 MG TABLET PO PRN (04:53)
[2020-11-23] MEDS ORDERED: MORPHINE SULFATE 4 MG/ML, 1ML IVPush ONE (05:30)
[2020-11-23 06:36] VITALS: BP 133/89
[2020-11-23] MEDS: MULTIVITAMIN 1 TABLET PO SCH (08:42)
[2020-11-23] MEDS: GABAPENTIN 300 MG CAPSULE PO SCH ×3 (08:42→20:51)
[2020-11-23] MEDS: ASCORBIC ACID 500 MG TABLET PO SCH ×2 (08:42→16:16)
[2020-11-23] MEDS: metFORMIN XR 500 MG TAB.ER.24H PO SCH (08:42)
[2020-11-23] MEDS: FUROSEMIDE 40 MG/4 ML IV SCH ×2 (08:42→09:00)
[2020-11-23] MEDS: BUSPIRONE 10 MG TABLET PO SCH (08:42)
[2020-11-23] MEDS: ZINC SULFATE 220 MG CAPSULE PO SCH (08:42)
[2020-11-23] MEDS: POTASSIUM CHLORIDE 20 MEQ TAB.ER.PRT PO SCH ×2 (08:42→16:16)
[2020-11-23] MEDS: SENNA/DOCUSATE TABLET PO SCH (08:53)
[2020-11-23] MEDS: IBUPROFEN 600 MG TABLET PO PRN ×2 (09:23→16:16)
[2020-11-23 12:36] VITALS: BP 142/96
[2020-11-23 18:51] VITALS: BP 125/84
[2020-11-24 00:53] VITALS: BP 131/88
[2020-11-24] MEDS: MEROPENEM 2 GM in SODIUM CHLORIDE 0.9% 100 ML IV SCH ×3 (01:16→16:45)
[2020-11-24] MEDS: ENOXAPARIN 30 MG/0.3 ML SQ SCH ×2 (03:10→16:00)
[2020-11-24 06:49] VITALS: BP 113/78
[2020-11-24] MEDS: SENNA/DOCUSATE TABLET PO SCH (09:00)
[2020-11-24] MEDS: ZINC SULFATE 220 MG CAPSULE PO SCH (09:41)
[2020-11-24] MEDS: GABAPENTIN 300 MG CAPSULE PO SCH ×3 (09:41→20:53)
[2020-11-24] MEDS: BUSPIRONE 10 MG TABLET PO SCH (09:41)
[2020-11-24] MEDS: metFORMIN XR 500 MG TAB.ER.24H PO SCH (09:41)
[2020-11-24] MEDS: POTASSIUM CHLORIDE 20 MEQ TAB.ER.PRT PO SCH ×2 (09:41→16:31)
[2020-11-24] MEDS: MULTIVITAMIN 1 TABLET PO SCH (09:42)
[2020-11-24] MEDS: ASCORBIC ACID 500 MG TABLET PO SCH ×2 (09:42→16:31)
[2020-11-24] MEDS: FUROSEMIDE 40 MG/4 ML IV SCH (11:15)
[2020-11-24] MEDS: ACETAMINOPHEN 325 MG TABLET PO PRN ×2 (11:27→20:53)
[2020-11-24 12:09] VITALS: BP 119/86
[2020-11-24] MEDS: IBUPROFEN 600 MG TABLET PO PRN (17:01)
[2020-11-24 19:05] VITALS: BP 119/83
[2020-11-25] MEDS: MEROPENEM 2 GM in SODIUM CHLORIDE 0.9% 100 ML IV SCH ×3 (00:51→16:30)
[2020-11-25 02:33] VITALS: BP 117/78
[2020-11-25] MEDS: ENOXAPARIN 30 MG/0.3 ML SQ SCH ×2 (04:00→15:22)
[2020-11-25 07:34] VITALS: BP 99/63
[2020-11-25 08:23] LABS: BASOPHILS % (AUTO) 0 % (0-1); EOSINOPHILS % (AUTO) 2 % (1-7); LYMPHOCYTES % (AUTO) 20 % (22-44); MEAN CORPUSCULAR HEMOGLOBIN 29.8 pg (27.0-34.8); MEAN CORPUSCULAR HGB CONC 33.2 g/dL (32.4-35.8); MEAN PLATELET VOLUME 7.5 fL (7.4-10.4); MONOCYTES % (AUTO) 10 % (2-9); NEUTROPHILS % (AUTO) 68 % (42-75); PLATELET COUNT 270 x10^3/uL (130-400); RED BLOOD COUNT 3.64 x10^6/uL (3.82-5.3); RED CELL DISTRIBUTION WIDTH 14.7 % (9.6-15.2)
[2020-11-25 08:26] LABS: ANION GAP 10 mmol/L (5-15); CALCIUM 8.9 mg/dL (8.5-10.1); CHLORIDE 113 mmol/L (98-107); CREATININE 0.71 mg/dL (0.55-1.02)
[2020-11-25] MEDS: SENNA/DOCUSATE TABLET PO SCH (09:00)
[2020-11-25] MEDS: ASCORBIC ACID 500 MG TABLET PO SCH ×2 (09:46→16:26)
[2020-11-25] MEDS: GABAPENTIN 300 MG CAPSULE PO SCH ×3 (09:47→20:15)
[2020-11-25] MEDS: BUSPIRONE 10 MG TABLET PO SCH (09:47)
[2020-11-25] MEDS: metFORMIN XR 500 MG TAB.ER.24H PO SCH (09:47)
[2020-11-25] MEDS: MULTIVITAMIN 1 TABLET PO SCH (09:47)
[2020-11-25] MEDS: POTASSIUM CHLORIDE 20 MEQ TAB.ER.PRT PO SCH (09:48)
[2020-11-25] MEDS: ZINC SULFATE 220 MG CAPSULE PO SCH (09:49)
[2020-11-25] MEDS: FUROSEMIDE 40 MG/4 ML IV SCH (11:10)
[2020-11-25 12:22] VITALS: BP 125/85
[2020-11-25 20:13] VITALS: BP 113/77
[2020-11-26] MEDS: MEROPENEM 2 GM in SODIUM CHLORIDE 0.9% 100 ML IV SCH ×3 (00:23→17:52)
[2020-11-26 00:30] VITALS: BP 99/61
[2020-11-26] MEDS: ENOXAPARIN 30 MG/0.3 ML SQ SCH ×2 (03:23→16:00)
[2020-11-26 07:28] VITALS: BP 110/75
[2020-11-26] MEDS: FUROSEMIDE 40 MG/4 ML IV SCH (09:00)
[2020-11-26] MEDS: ASCORBIC ACID 500 MG TABLET PO SCH ×2 (10:02→16:22)
[2020-11-26] MEDS: BUSPIRONE 10 MG TABLET PO SCH (10:03)
[2020-11-26] MEDS: metFORMIN XR 500 MG TAB.ER.24H PO SCH (10:03)
[2020-11-26] MEDS: ZINC SULFATE 220 MG CAPSULE PO SCH (10:03)
[2020-11-26] MEDS: GABAPENTIN 300 MG CAPSULE PO SCH ×3 (10:03→20:55)
[2020-11-26] MEDS: MULTIVITAMIN 1 TABLET PO SCH (10:03)
[2020-11-26] MEDS: SENNA/DOCUSATE TABLET PO SCH (10:04)
[2020-11-26] MEDS: ACETAMINOPHEN 325 MG TABLET PO PRN (12:53)
[2020-11-26] MEDS: HYDROcodone/APAP 5/325 TABLET PO PRN (14:02)
[2020-11-26 15:23] VITALS: BP 103/69
[2020-11-26 20:05] VITALS: BP 132/86
[2020-11-26] MEDS: BACLOFEN 10 MG TABLET PO PRN (20:55)
[2020-11-27 00:57] VITALS: BP 107/68
[2020-11-27] MEDS: MEROPENEM 2 GM in SODIUM CHLORIDE 0.9% 100 ML IV SCH ×3 (01:07→18:15)
[2020-11-27] MEDS: ENOXAPARIN 30 MG/0.3 ML SQ SCH ×2 (04:08→15:39)
[2020-11-27 05:26] LABS: HCT (SEDRATE) 35.5 % (34.6-47.8)
[2020-11-27 05:36] LABS: BASOPHILS % (AUTO) 0 % (0-1); EOSINOPHILS % (AUTO) 2 % (1-7); LYMPHOCYTES % (AUTO) 21 % (22-44); MEAN CORPUSCULAR HEMOGLOBIN 29.8 pg (27.0-34.8); MEAN CORPUSCULAR HGB CONC 33.6 g/dL (32.4-35.8); MEAN PLATELET VOLUME 7.7 fL (7.4-10.4); MONOCYTES % (AUTO) 8 % (2-9); NEUTROPHILS % (AUTO) 69 % (42-75); PLATELET COUNT 300 x10^3/uL (130-400); RED BLOOD COUNT 4.01 x10^6/uL (3.82-5.3); RED CELL DISTRIBUTION WIDTH 15.1 % (9.6-15.2)
[2020-11-27 05:38] LABS: CHLORIDE 112 mmol/L (98-107)
[2020-11-27 05:48] LABS: ALANINE AMINOTRANSFERASE 48 U/L (12-78); ALBUMIN 3.5 g/dL (3.4-5.0); ALKALINE PHOSPHATASE 80 U/L (45-117); ANION GAP 7 mmol/L (5-15); BILIRUBIN,TOTAL 0.3 mg/dL (0.2-1.0); C-REACTIVE PROTEIN, QUANT 0.78 mg/dL (0.02-0.49); CALCIUM 9.4 mg/dL (8.5-10.1); CREATININE 0.65 mg/dL (0.55-1.02); TOTAL PROTEIN 7.8 g/dL (6.4-8.2)
[2020-11-27 07:21] VITALS: BP 105/72
[2020-11-27] MEDS: GABAPENTIN 300 MG CAPSULE PO SCH ×3 (08:30→20:40)
[2020-11-27] MEDS: ASCORBIC ACID 500 MG TABLET PO SCH ×2 (08:30→15:39)
[2020-11-27] MEDS: POTASSIUM CHLORIDE 10 MEQ TABLET.ER PO SCH (08:30)
[2020-11-27] MEDS: MULTIVITAMIN 1 TABLET PO SCH (08:30)
[2020-11-27] MEDS: metFORMIN XR 500 MG TAB.ER.24H PO SCH (08:30)
[2020-11-27] MEDS: ZINC SULFATE 220 MG CAPSULE PO SCH (08:30)
[2020-11-27] MEDS: BUSPIRONE 10 MG TABLET PO SCH (08:30)
[2020-11-27] MEDS: SENNA/DOCUSATE TABLET PO SCH (08:31)
[2020-11-27] MEDS: FUROSEMIDE 20 MG TABLET PO SCH (10:58)
[2020-11-27 15:44] VITALS: BP 129/84
[2020-11-27] MEDS: ACETAMINOPHEN 325 MG TABLET PO PRN (15:53)
[2020-11-27 18:50] VITALS: BP 136/85
[2020-11-28 00:33] VITALS: BP 118/74
[2020-11-28] MEDS: MEROPENEM 2 GM in SODIUM CHLORIDE 0.9% 100 ML IV SCH ×3 (02:40→20:40)
[2020-11-28] MEDS: ENOXAPARIN 30 MG/0.3 ML SQ SCH ×2 (03:49→16:00)
[2020-11-28 05:29] LABS: BASOPHILS % (AUTO) 0 % (0-1); EOSINOPHILS % (AUTO) 2 % (1-7); LYMPHOCYTES % (AUTO) 21 % (22-44); MEAN CORPUSCULAR HEMOGLOBIN 29.6 pg (27.0-34.8); MEAN CORPUSCULAR HGB CONC 32.9 g/dL (32.4-35.8); MEAN PLATELET VOLUME 7.8 fL (7.4-10.4); MONOCYTES % (AUTO) 9 % (2-9); NEUTROPHILS % (AUTO) 67 % (42-75); PLATELET COUNT 285 x10^3/uL (130-400); RED BLOOD COUNT 3.55 x10^6/uL (3.82-5.3); RED CELL DISTRIBUTION WIDTH 15.3 % (9.6-15.2)
[2020-11-28 05:30] LABS: ANION GAP 4 mmol/L (5-15); CALCIUM 8.7 mg/dL (8.5-10.1); CHLORIDE 115 mmol/L (98-107)
[2020-11-28 05:34] LABS: ALANINE AMINOTRANSFERASE 37 U/L (12-78); ALKALINE PHOSPHATASE 74 U/L (45-117); BILIRUBIN,TOTAL 0.2 mg/dL (0.2-1.0); CREATININE 0.73 mg/dL (0.55-1.02); TOTAL PROTEIN 6.7 g/dL (6.4-8.2)
[2020-11-28 07:25] VITALS: BP 99/65
[2020-11-28] MEDS: SENNA/DOCUSATE TABLET PO SCH (09:00)
[2020-11-28] MEDS: POTASSIUM CHLORIDE 10 MEQ TABLET.ER PO SCH (09:03)
[2020-11-28] MEDS: ASCORBIC ACID 500 MG TABLET PO SCH ×2 (09:03→16:42)
[2020-11-28] MEDS: ZINC SULFATE 220 MG CAPSULE PO SCH (09:03)
[2020-11-28] MEDS: MULTIVITAMIN 1 TABLET PO SCH (09:03)
[2020-11-28] MEDS: GABAPENTIN 300 MG CAPSULE PO SCH ×3 (09:03→20:27)
[2020-11-28] MEDS: BUSPIRONE 10 MG TABLET PO SCH (09:03)
[2020-11-28] MEDS: metFORMIN XR 500 MG TAB.ER.24H PO SCH (09:03)
[2020-11-28 09:09] VITALS: BP 114/81
[2020-11-28] MEDS: FUROSEMIDE 20 MG TABLET PO SCH (09:09)
[2020-11-28 13:22] VITALS: BP 119/84
[2020-11-28] MEDS: ACETAMINOPHEN 325 MG TABLET PO PRN (18:07)
[2020-11-28 20:06] VITALS: BP 154/100
[2020-11-29 01:41] VITALS: BP 109/63
[2020-11-29] MEDS: ENOXAPARIN 30 MG/0.3 ML SQ SCH ×2 (04:31→16:00)
[2020-11-29] MEDS: MEROPENEM 2 GM in SODIUM CHLORIDE 0.9% 100 ML IV SCH ×3 (04:37→20:36)
[2020-11-29 07:41] VITALS: BP 102/66
[2020-11-29] MEDS: BUSPIRONE 10 MG TABLET PO SCH (08:33)
[2020-11-29] MEDS: SENNA/DOCUSATE TABLET PO SCH (08:34)
[2020-11-29] MEDS: ZINC SULFATE 220 MG CAPSULE PO SCH (08:34)
[2020-11-29] MEDS: metFORMIN XR 500 MG TAB.ER.24H PO SCH (08:34)
[2020-11-29] MEDS: GABAPENTIN 300 MG CAPSULE PO SCH ×3 (08:34→20:36)
[2020-11-29] MEDS: ASCORBIC ACID 500 MG TABLET PO SCH ×2 (08:34→16:36)
[2020-11-29] MEDS: MULTIVITAMIN 1 TABLET PO SCH (08:35)
[2020-11-29] MEDS: POTASSIUM CHLORIDE 10 MEQ TABLET.ER PO SCH (08:35)
[2020-11-29] MEDS: FUROSEMIDE 20 MG TABLET PO SCH (08:35)
[2020-11-29] MEDS: HYDROcodone/APAP 5/325 TABLET PO PRN (10:38)
[2020-11-29 14:41] VITALS: BP 135/83
[2020-11-29 20:03] VITALS: BP 129/84
[2020-11-30 01:44] VITALS: BP 140/81
[2020-11-30] MEDS: ENOXAPARIN 30 MG/0.3 ML SQ SCH ×2 (04:00→16:00)
[2020-11-30] MEDS: MEROPENEM 2 GM in SODIUM CHLORIDE 0.9% 100 ML IV SCH ×3 (05:02→20:32)
[2020-11-30] MEDS: FUROSEMIDE 20 MG TABLET PO SCH (08:22)
[2020-11-30] MEDS: ZINC SULFATE 220 MG CAPSULE PO SCH (08:22)
[2020-11-30] MEDS: BUSPIRONE 10 MG TABLET PO SCH (08:22)
[2020-11-30] MEDS: ASCORBIC ACID 500 MG TABLET PO SCH ×2 (08:23→17:54)
[2020-11-30] MEDS: SENNA/DOCUSATE TABLET PO SCH (08:23)
[2020-11-30] MEDS: GABAPENTIN 300 MG CAPSULE PO SCH ×3 (08:23→20:32)
[2020-11-30] MEDS: POTASSIUM CHLORIDE 10 MEQ TABLET.ER PO SCH (08:23)
[2020-11-30] MEDS: metFORMIN XR 500 MG TAB.ER.24H PO SCH (08:23)
[2020-11-30] MEDS: MULTIVITAMIN 1 TABLET PO SCH (08:23)
[2020-11-30 08:36] VITALS: BP 110/80
[2020-11-30] MEDS ORDERED: LIDOCAINE 4% TOPICAL SOLUTION 50 ML TP ONE (11:30)
[2020-11-30] MEDS: DAKIN'S SOLUTION 1/4 STRENGTH 1,000 ML IRRIG SOLN EXT SCH (11:30)
[2020-11-30] MEDS: HYDROcodone/APAP 5/325 TABLET PO PRN (12:14)
[2020-11-30 13:22] VITALS: BP 122/88
[2020-11-30] MEDS: OxyconTIN ER 15 MG TAB.ER PO SCH (17:54)
[2020-11-30 19:42] VITALS: BP 133/77
[2020-12-01 02:34] VITALS: BP 114/82
[2020-12-01] MEDS: ENOXAPARIN 30 MG/0.3 ML SQ SCH ×2 (04:15→16:00)
[2020-12-01] MEDS: MEROPENEM 2 GM in SODIUM CHLORIDE 0.9% 100 ML IV SCH ×3 (04:28→21:05)
[2020-12-01] MEDS: OxyconTIN ER 15 MG TAB.ER PO SCH ×2 (06:00→18:34)
[2020-12-01 07:17] VITALS: BP 123/81
[2020-12-01] MEDS: SENNA/DOCUSATE TABLET PO SCH (09:00)
[2020-12-01] MEDS: TORSEMIDE 20 MG TABLET PO SCH (10:48)
[2020-12-01] MEDS: ZINC SULFATE 220 MG CAPSULE PO SCH (10:49)
[2020-12-01] MEDS: ASCORBIC ACID 500 MG TABLET PO SCH ×2 (10:49→16:23)
[2020-12-01] MEDS: POTASSIUM CHLORIDE 10 MEQ TABLET.ER PO SCH (10:49)
[2020-12-01] MEDS: BACLOFEN 10 MG TABLET PO PRN (10:49)
[2020-12-01] MEDS: metFORMIN XR 500 MG TAB.ER.24H PO SCH (10:49)
[2020-12-01] MEDS: MULTIVITAMIN 1 TABLET PO SCH (10:49)
[2020-12-01] MEDS: BUSPIRONE 10 MG TABLET PO SCH (10:49)
[2020-12-01] MEDS: GABAPENTIN 300 MG CAPSULE PO SCH ×3 (10:49→21:05)
[2020-12-01] MEDS: OXYcodone IR 5MG TABLET PO PRN (10:50)
[2020-12-01 12:45] VITALS: BP 132/77
[2020-12-01] MEDS: DAKIN'S SOLUTION 1/4 STRENGTH 1,000 ML IRRIG SOLN EXT SCH (13:00)
[2020-12-01] MEDS ORDERED: OxyconTIN ER 10 MG TAB.ER ONE (18:23)
[2020-12-01 20:40] VITALS: BP 121/81
[2020-12-02 01:25] VITALS: BP 120/79
[2020-12-02] MEDS: OXYcodone IR 5MG TABLET PO PRN (01:52)
[2020-12-02] MEDS: ENOXAPARIN 30 MG/0.3 ML SQ SCH ×2 (04:11→15:47)
[2020-12-02] MEDS: MEROPENEM 2 GM in SODIUM CHLORIDE 0.9% 100 ML IV SCH ×2 (04:49→14:38)
[2020-12-02] MEDS: OxyconTIN ER 15 MG TAB.ER PO SCH ×2 (05:43→17:55)
[2020-12-02 07:30] VITALS: BP 97/67
[2020-12-02] MEDS: SENNA/DOCUSATE TABLET PO SCH (07:54)
[2020-12-02] MEDS: BUSPIRONE 10 MG TABLET PO SCH (08:24)
[2020-12-02] MEDS: MULTIVITAMIN 1 TABLET PO SCH (08:24)
[2020-12-02] MEDS: ASCORBIC ACID 500 MG TABLET PO SCH ×2 (08:24→16:35)
[2020-12-02] MEDS: GABAPENTIN 300 MG CAPSULE PO SCH ×3 (08:24→21:55)
[2020-12-02] MEDS: TORSEMIDE 20 MG TABLET PO SCH (08:24)
[2020-12-02] MEDS: metFORMIN XR 500 MG TAB.ER.24H PO SCH (08:24)
[2020-12-02] MEDS: POTASSIUM CHLORIDE 10 MEQ TABLET.ER PO SCH (08:24)
[2020-12-02] MEDS: ZINC SULFATE 220 MG CAPSULE PO SCH (08:24)
[2020-12-02] MEDS: DAKIN'S SOLUTION 1/4 STRENGTH 1,000 ML IRRIG SOLN EXT SCH (09:00)
[2020-12-02] MEDS ORDERED: DAKIN'S SOLUTION 1/4 STRENGTH 1,000 ML IRRIG SOLN EXT PRN (10:00)
[2020-12-02 13:37] VITALS: BP 118/77
[2020-12-02 21:23] VITALS: BP 102/64
[2020-12-03] MEDS: MEROPENEM 2 GM in SODIUM CHLORIDE 0.9% 100 ML IV SCH ×3 (00:54→17:22)
[2020-12-03 01:23] VITALS: BP 108/76
[2020-12-03] MEDS: OxyconTIN ER 15 MG TAB.ER PO SCH ×2 (06:00→18:12)
[2020-12-03] MEDS: ENOXAPARIN 30 MG/0.3 ML SQ SCH ×2 (06:00→17:26)
[2020-12-03] MEDS ORDERED: OxyconTIN ER 10 MG TAB.ER ONE ×2 (06:19→18:02)
[2020-12-03 07:11] VITALS: BP 129/82
[2020-12-03] MEDS: TORSEMIDE 20 MG TABLET PO SCH (08:23)
[2020-12-03] MEDS: metFORMIN XR 500 MG TAB.ER.24H PO SCH (08:23)
[2020-12-03] MEDS: ASCORBIC ACID 500 MG TABLET PO SCH ×2 (08:23→17:22)
[2020-12-03] MEDS: MULTIVITAMIN 1 TABLET PO SCH (08:23)
[2020-12-03] MEDS: GABAPENTIN 300 MG CAPSULE PO SCH ×3 (08:24→21:44)
[2020-12-03] MEDS: BUSPIRONE 10 MG TABLET PO SCH (08:24)
[2020-12-03] MEDS: POTASSIUM CHLORIDE 10 MEQ TABLET.ER PO SCH (08:24)
[2020-12-03] MEDS: ZINC SULFATE 220 MG CAPSULE PO SCH (08:24)
[2020-12-03] MEDS: SENNA/DOCUSATE TABLET PO SCH (09:00)
[2020-12-03 13:42] VITALS: BP 134/79
[2020-12-03 19:36] VITALS: BP 108/76
[2020-12-04] MEDS: MEROPENEM 2 GM in SODIUM CHLORIDE 0.9% 100 ML IV SCH ×3 (00:37→16:44)
[2020-12-04 00:43] VITALS: BP 97/66
[2020-12-04 05:22] LABS: BASOPHILS % (AUTO) 0 % (0-1); EOSINOPHILS % (AUTO) 1 % (1-7); LYMPHOCYTES % (AUTO) 23 % (22-44); MEAN CORPUSCULAR HEMOGLOBIN 30.4 pg (27.0-34.8); MEAN CORPUSCULAR HGB CONC 33.5 g/dL (32.4-35.8); MEAN PLATELET VOLUME 8.5 fL (7.4-10.4); MONOCYTES % (AUTO) 10 % (2-9); NEUTROPHILS % (AUTO) 66 % (42-75); PLATELET COUNT 259 x10^3/uL (130-400); RED BLOOD COUNT 3.62 x10^6/uL (3.82-5.3); RED CELL DISTRIBUTION WIDTH 15.8 % (9.6-15.2)
[2020-12-04 05:25] LABS: HCT (SEDRATE) 32.9 % (34.6-47.8)
[2020-12-04 05:26] LABS: ALANINE AMINOTRANSFERASE 49 U/L (12-78); ALBUMIN 3.1 g/dL (3.4-5.0); ANION GAP 6 mmol/L (5-15); CALCIUM 9.2 mg/dL (8.5-10.1); CHLORIDE 110 mmol/L (98-107); CREATININE 0.74 mg/dL (0.55-1.02)
[2020-12-04 05:37] LABS: ALKALINE PHOSPHATASE 74 U/L (45-117); BILIRUBIN,TOTAL 0.4 mg/dL (0.2-1.0); TOTAL PROTEIN 6.8 g/dL (6.4-8.2)
[2020-12-04] MEDS: OxyconTIN ER 15 MG TAB.ER PO SCH ×2 (05:44→18:04)
[2020-12-04] MEDS: ENOXAPARIN 30 MG/0.3 ML SQ SCH ×2 (06:00→18:00)
[2020-12-04 07:31] VITALS: BP 135/89
[2020-12-04] MEDS: TORSEMIDE 20 MG TABLET PO SCH (08:33)
[2020-12-04] MEDS: GABAPENTIN 300 MG CAPSULE PO SCH ×3 (08:34→20:58)
[2020-12-04] MEDS: POTASSIUM CHLORIDE 10 MEQ TABLET.ER PO SCH (08:34)
[2020-12-04] MEDS: ZINC SULFATE 220 MG CAPSULE PO SCH (08:34)
[2020-12-04] MEDS: ASCORBIC ACID 500 MG TABLET PO SCH ×2 (08:34→16:43)
[2020-12-04] MEDS: BUSPIRONE 10 MG TABLET PO SCH (08:34)
[2020-12-04] MEDS: MULTIVITAMIN 1 TABLET PO SCH (08:34)
[2020-12-04] MEDS: metFORMIN XR 500 MG TAB.ER.24H PO SCH (08:34)
[2020-12-04] MEDS: SENNA/DOCUSATE TABLET PO SCH (08:36)
[2020-12-04] MEDS: OXYcodone IR 5MG TABLET PO PRN (09:26)
[2020-12-04] MEDS ORDERED: LIDOCAINE 4% TOPICAL SOLUTION 50 ML TP ONE (10:00)
[2020-12-04 13:01] VITALS: BP 109/76
[2020-12-04 19:27] VITALS: BP 104/71
[2020-12-05] MEDS: MEROPENEM 2 GM in SODIUM CHLORIDE 0.9% 100 ML IV SCH ×3 (00:50→16:59)
[2020-12-05 02:59] VITALS: BP 99/72
[2020-12-05] MEDS: OxyconTIN ER 15 MG TAB.ER PO SCH ×2 (05:52→18:46)
[2020-12-05] MEDS: ENOXAPARIN 30 MG/0.3 ML SQ SCH ×2 (06:00→17:04)
[2020-12-05 08:05] VITALS: BP 135/75
[2020-12-05] MEDS: metFORMIN XR 500 MG TAB.ER.24H PO SCH (08:10)
[2020-12-05] MEDS: POTASSIUM CHLORIDE 10 MEQ TABLET.ER PO SCH (08:10)
[2020-12-05] MEDS: TORSEMIDE 20 MG TABLET PO SCH (08:10)
[2020-12-05] MEDS: BUSPIRONE 10 MG TABLET PO SCH (08:10)
[2020-12-05] MEDS: GABAPENTIN 300 MG CAPSULE PO SCH ×3 (08:10→21:08)
[2020-12-05] MEDS: ZINC SULFATE 220 MG CAPSULE PO SCH (08:10)
[2020-12-05] MEDS: ASCORBIC ACID 500 MG TABLET PO SCH ×2 (08:10→16:40)
[2020-12-05] MEDS: SENNA/DOCUSATE TABLET PO SCH (08:11)
[2020-12-05] MEDS: MULTIVITAMIN 1 TABLET PO SCH (08:11)
[2020-12-05 13:21] VITALS: BP 108/73
[2020-12-05] MEDS ORDERED: OxyconTIN ER 10 MG TAB.ER ONE (18:25)
[2020-12-05 18:26] VITALS: BP 106/69
[2020-12-06] MEDS: MEROPENEM 2 GM in SODIUM CHLORIDE 0.9% 100 ML IV SCH ×3 (00:19→22:06)
[2020-12-06 01:40] VITALS: BP 100/66
[2020-12-06] MEDS: ENOXAPARIN 30 MG/0.3 ML SQ SCH ×2 (06:00→14:58)
[2020-12-06] MEDS: OxyconTIN ER 15 MG TAB.ER PO SCH ×2 (06:18→18:00)
[2020-12-06 08:36] VITALS: BP 100/68
[2020-12-06] MEDS: SENNA/DOCUSATE TABLET PO SCH (09:00)
[2020-12-06] MEDS: MULTIVITAMIN 1 TABLET PO SCH (09:57)
[2020-12-06] MEDS: metFORMIN XR 500 MG TAB.ER.24H PO SCH (09:57)
[2020-12-06] MEDS: GABAPENTIN 300 MG CAPSULE PO SCH ×3 (09:57→22:06)
[2020-12-06] MEDS: ASCORBIC ACID 500 MG TABLET PO SCH ×2 (09:57→18:01)
[2020-12-06] MEDS: ZINC SULFATE 220 MG CAPSULE PO SCH (09:57)
[2020-12-06] MEDS: TORSEMIDE 20 MG TABLET PO SCH (09:58)
[2020-12-06] MEDS: BUSPIRONE 10 MG TABLET PO SCH (09:58)
[2020-12-06] MEDS: POTASSIUM CHLORIDE 10 MEQ TABLET.ER PO SCH (09:58)
[2020-12-06] MEDS: OXYcodone IR 5MG TABLET PO PRN (11:19)
[2020-12-06 13:09] VITALS: BP 101/66
[2020-12-06 19:22] VITALS: BP 112/74
[2020-12-07 00:30] VITALS: BP 134/94
[2020-12-07] MEDS: ENOXAPARIN 30 MG/0.3 ML SQ SCH ×2 (05:11→17:17)
[2020-12-07] MEDS: MEROPENEM 2 GM in SODIUM CHLORIDE 0.9% 100 ML IV SCH ×3 (06:16→21:15)
[2020-12-07] MEDS: OxyconTIN ER 15 MG TAB.ER PO SCH ×2 (06:16→18:29)
[2020-12-07 07:58] VITALS: BP 115/76
[2020-12-07] MEDS: BUSPIRONE 10 MG TABLET PO SCH (08:52)
[2020-12-07] MEDS: MULTIVITAMIN 1 TABLET PO SCH (08:52)
[2020-12-07] MEDS: metFORMIN XR 500 MG TAB.ER.24H PO SCH (08:52)
[2020-12-07] MEDS: POTASSIUM CHLORIDE 10 MEQ TABLET.ER PO SCH (08:52)
[2020-12-07] MEDS: GABAPENTIN 300 MG CAPSULE PO SCH ×3 (08:52→21:16)
[2020-12-07] MEDS: ASCORBIC ACID 500 MG TABLET PO SCH ×2 (08:53→17:16)
[2020-12-07] MEDS: TORSEMIDE 20 MG TABLET PO SCH (08:53)
[2020-12-07] MEDS: SENNA/DOCUSATE TABLET PO SCH (08:53)
[2020-12-07] MEDS: ZINC SULFATE 220 MG CAPSULE PO SCH (08:53)
[2020-12-07 12:15] VITALS: BP 137/97
[2020-12-07 14:52] LABS: TROPONIN I < 0.015 ng/mL (0.000-0.045)
[2020-12-07 20:03] VITALS: BP 137/97
[2020-12-08 00:57] VITALS: BP 114/73
[2020-12-08] MEDS: ENOXAPARIN 30 MG/0.3 ML SQ SCH ×2 (05:43→16:06)
[2020-12-08] MEDS: OxyconTIN ER 15 MG TAB.ER PO SCH ×2 (05:57→18:20)
[2020-12-08] MEDS: MEROPENEM 2 GM in SODIUM CHLORIDE 0.9% 100 ML IV SCH ×3 (05:57→22:42)
[2020-12-08 07:59] VITALS: BP 143/98
[2020-12-08] MEDS: GABAPENTIN 300 MG CAPSULE PO SCH ×3 (08:15→21:47)
[2020-12-08] MEDS: ZINC SULFATE 220 MG CAPSULE PO SCH (08:15)
[2020-12-08] MEDS: BUSPIRONE 10 MG TABLET PO SCH (08:15)
[2020-12-08] MEDS: ASCORBIC ACID 500 MG TABLET PO SCH ×2 (08:15→16:05)
[2020-12-08] MEDS: MULTIVITAMIN 1 TABLET PO SCH (08:15)
[2020-12-08] MEDS: metFORMIN XR 500 MG TAB.ER.24H PO SCH (08:16)
[2020-12-08] MEDS: POTASSIUM CHLORIDE 10 MEQ TABLET.ER PO SCH (08:16)
[2020-12-08] MEDS: TORSEMIDE 20 MG TABLET PO SCH (08:16)
[2020-12-08] MEDS: SENNA/DOCUSATE TABLET PO SCH (08:16)
[2020-12-08] MEDS: OXYcodone IR 5MG TABLET PO PRN (11:46)
[2020-12-08] MEDS: LIDOCAINE 4% TOPICAL SOLUTION 50 ML TP SCH (12:00)
[2020-12-08 15:30] VITALS: BP 109/69
[2020-12-08 19:26] VITALS: BP 122/74
[2020-12-08 20:17] VITALS: BP 123/80
[2020-12-08 21:17] VITALS: BP 128/80
[2020-12-09 00:52] VITALS: BP 119/84
[2020-12-09] MEDS: ENOXAPARIN 30 MG/0.3 ML SQ SCH ×2 (05:59→18:00)
[2020-12-09] MEDS: OxyconTIN ER 15 MG TAB.ER PO SCH ×2 (06:04→18:12)
[2020-12-09] MEDS: MEROPENEM 2 GM in SODIUM CHLORIDE 0.9% 100 ML IV SCH ×2 (06:04→14:26)
[2020-12-09 07:44] VITALS: BP 95/59
[2020-12-09] MEDS: POTASSIUM CHLORIDE 10 MEQ TABLET.ER PO SCH (08:01)
[2020-12-09] MEDS: BUSPIRONE 10 MG TABLET PO SCH (08:01)
[2020-12-09] MEDS: ASCORBIC ACID 500 MG TABLET PO SCH ×2 (08:01→16:43)
[2020-12-09] MEDS: GABAPENTIN 300 MG CAPSULE PO SCH ×3 (08:02→19:59)
[2020-12-09] MEDS: ZINC SULFATE 220 MG CAPSULE PO SCH (08:02)
[2020-12-09] MEDS: TORSEMIDE 20 MG TABLET PO SCH (08:02)
[2020-12-09] MEDS: SENNA/DOCUSATE TABLET PO SCH ×2 (08:02→08:03)
[2020-12-09] MEDS: metFORMIN XR 500 MG TAB.ER.24H PO SCH (08:03)
[2020-12-09] MEDS: MULTIVITAMIN 1 TABLET PO SCH (08:03)
[2020-12-09 16:33] VITALS: BP 123/80
[2020-12-09 18:48] VITALS: BP 155/97
[2020-12-10] MEDS: MEROPENEM 2 GM in SODIUM CHLORIDE 0.9% 100 ML IV SCH ×3 (00:10→15:59)
[2020-12-10 00:14] VITALS: BP 138/83
[2020-12-10] MEDS: ENOXAPARIN 30 MG/0.3 ML SQ SCH ×2 (06:00→17:12)
[2020-12-10] MEDS: OxyconTIN ER 15 MG TAB.ER PO SCH ×2 (06:33→17:12)
[2020-12-10 08:03] VITALS: BP 120/84
[2020-12-10] MEDS: ASCORBIC ACID 500 MG TABLET PO SCH ×2 (08:28→16:00)
[2020-12-10] MEDS: TORSEMIDE 20 MG TABLET PO SCH (08:28)
[2020-12-10] MEDS: BUSPIRONE 10 MG TABLET PO SCH (08:28)
[2020-12-10] MEDS: metFORMIN XR 500 MG TAB.ER.24H PO SCH (08:28)
[2020-12-10] MEDS: POTASSIUM CHLORIDE 10 MEQ TABLET.ER PO SCH (08:29)
[2020-12-10] MEDS: GABAPENTIN 300 MG CAPSULE PO SCH ×3 (08:29→20:40)
[2020-12-10] MEDS: MULTIVITAMIN 1 TABLET PO SCH (08:29)
[2020-12-10] MEDS: ZINC SULFATE 220 MG CAPSULE PO SCH (08:29)
[2020-12-10] MEDS: SENNA/DOCUSATE TABLET PO SCH (08:31)
[2020-12-10 12:46] VITALS: BP 135/87
[2020-12-10 19:03] VITALS: BP 129/84
[2020-12-11] MEDS: MEROPENEM 2 GM in SODIUM CHLORIDE 0.9% 100 ML IV SCH ×3 (00:22→17:07)
[2020-12-11 01:20] VITALS: BP 122/85
[2020-12-11] MEDS ORDERED: OxyconTIN ER 10 MG TAB.ER ONE (05:42)
[2020-12-11] MEDS: ENOXAPARIN 30 MG/0.3 ML SQ SCH ×2 (05:44→17:08)
[2020-12-11] MEDS: OxyconTIN ER 15 MG TAB.ER PO SCH ×2 (05:44→17:44)
[2020-12-11 05:51] LABS: BASOPHILS % (AUTO) 1 % (0-1); EOSINOPHILS % (AUTO) 2 % (1-7); LYMPHOCYTES % (AUTO) 33 % (22-44); MEAN CORPUSCULAR HGB CONC 32.8 g/dL (32.4-35.8); MEAN PLATELET VOLUME 8.3 fL (7.4-10.4); MONOCYTES % (AUTO) 8 % (2-9); NEUTROPHILS % (AUTO) 56 % (42-75); PLATELET COUNT 249 x10^3/uL (130-400); RED BLOOD COUNT 3.93 x10^6/uL (3.82-5.3); RED CELL DISTRIBUTION WIDTH 15.7 % (9.6-15.2)
[2020-12-11 05:56] LABS: ALBUMIN 3.2 g/dL (3.4-5.0); ANION GAP 6 mmol/L (5-15); CALCIUM 8.8 mg/dL (8.5-10.1); CHLORIDE 110 mmol/L (98-107)
[2020-12-11 06:01] LABS: ALANINE AMINOTRANSFERASE 35 U/L (12-78); ALKALINE PHOSPHATASE 69 U/L (45-117); BILIRUBIN,TOTAL 0.2 mg/dL (0.2-1.0); C-REACTIVE PROTEIN, QUANT 0.64 mg/dL (0.02-0.49); CREATININE 0.71 mg/dL (0.55-1.02); TOTAL PROTEIN 7.1 g/dL (6.4-8.2)
[2020-12-11 06:49] LABS: HCT (SEDRATE) 35.9 % (34.6-47.8)
[2020-12-11] MEDS: POTASSIUM CHLORIDE 10 MEQ TABLET.ER PO SCH ×2 (08:00→10:04)
[2020-12-11 08:23] VITALS: BP 121/88
[2020-12-11] MEDS: SENNA/DOCUSATE TABLET PO SCH ×2 (09:00→10:03)
[2020-12-11] MEDS: LIDOCAINE 4% TOPICAL SOLUTION 50 ML TP SCH (09:00)
[2020-12-11] MEDS: GABAPENTIN 300 MG CAPSULE PO SCH ×3 (10:03→20:51)
[2020-12-11] MEDS: TORSEMIDE 20 MG TABLET PO SCH (10:03)
[2020-12-11] MEDS: BUSPIRONE 10 MG TABLET PO SCH (10:04)
[2020-12-11] MEDS: metFORMIN XR 500 MG TAB.ER.24H PO SCH (10:04)
[2020-12-11] MEDS: ASCORBIC ACID 500 MG TABLET PO SCH ×2 (10:04→17:07)
[2020-12-11] MEDS: ZINC SULFATE 220 MG CAPSULE PO SCH (10:04)
[2020-12-11] MEDS: MULTIVITAMIN 1 TABLET PO SCH (10:04)
[2020-12-11] MEDS: OXYcodone IR 5MG TABLET PO PRN (12:28)
[2020-12-11 14:14] VITALS: BP 109/69
[2020-12-11 18:30] VITALS: BP 114/70
[2020-12-12 00:49] VITALS: BP 151/72
[2020-12-12] MEDS: MEROPENEM 2 GM in SODIUM CHLORIDE 0.9% 100 ML IV SCH ×3 (00:58→17:10)
[2020-12-12] MEDS: OxyconTIN ER 15 MG TAB.ER PO SCH ×2 (05:51→17:10)
[2020-12-12] MEDS: ENOXAPARIN 30 MG/0.3 ML SQ SCH ×2 (05:51→16:51)
[2020-12-12 07:14] VITALS: BP 124/88
[2020-12-12 07:41] LABS: HCG UR SG > 1.045 (1.003-1.030)
[2020-12-12] MEDS: POTASSIUM CHLORIDE 10 MEQ TABLET.ER PO SCH (08:00)
[2020-12-12] MEDS: SENNA/DOCUSATE TABLET PO SCH (09:00)
[2020-12-12] MEDS: MULTIVITAMIN 1 TABLET PO SCH (09:03)
[2020-12-12] MEDS: TORSEMIDE 20 MG TABLET PO SCH (09:03)
[2020-12-12] MEDS: ASCORBIC ACID 500 MG TABLET PO SCH ×2 (09:03→17:10)
[2020-12-12] MEDS: BUSPIRONE 10 MG TABLET PO SCH (09:03)
[2020-12-12] MEDS: GABAPENTIN 300 MG CAPSULE PO SCH ×3 (09:03→20:56)
[2020-12-12] MEDS: metFORMIN XR 500 MG TAB.ER.24H PO SCH (09:03)
[2020-12-12] MEDS: ZINC SULFATE 220 MG CAPSULE PO SCH (09:09)
[2020-12-12 13:29] VITALS: BP 119/76
[2020-12-12 18:38] VITALS: BP 147/94
[2020-12-13 00:01] VITALS: BP 104/69
[2020-12-13] MEDS: MEROPENEM 2 GM in SODIUM CHLORIDE 0.9% 100 ML IV SCH ×4 (01:00→17:05)
[2020-12-13] MEDS: OxyconTIN ER 15 MG TAB.ER PO SCH ×2 (05:45→17:06)
[2020-12-13] MEDS: ENOXAPARIN 30 MG/0.3 ML SQ SCH ×2 (05:45→16:48)
[2020-12-13 07:52] VITALS: BP 102/67
[2020-12-13] MEDS: GABAPENTIN 300 MG CAPSULE PO SCH ×3 (08:16→20:34)
[2020-12-13] MEDS: ASCORBIC ACID 500 MG TABLET PO SCH ×2 (08:16→17:06)
[2020-12-13] MEDS: metFORMIN XR 500 MG TAB.ER.24H PO SCH (08:16)
[2020-12-13] MEDS: MULTIVITAMIN 1 TABLET PO SCH (08:16)
[2020-12-13] MEDS: TORSEMIDE 20 MG TABLET PO SCH (08:17)
[2020-12-13] MEDS: ZINC SULFATE 220 MG CAPSULE PO SCH (08:17)
[2020-12-13] MEDS: BUSPIRONE 10 MG TABLET PO SCH (08:17)
[2020-12-13] MEDS: SENNA/DOCUSATE TABLET PO SCH (08:26)
[2020-12-13] MEDS: LIDOCAINE 4% TOPICAL SOLUTION 50 ML TP SCH (09:00)
[2020-12-13 14:12] VITALS: BP 104/67
[2020-12-13 18:46] VITALS: BP 107/68
[2020-12-14] MEDS: MEROPENEM 2 GM in SODIUM CHLORIDE 0.9% 100 ML IV SCH ×3 (01:27→17:59)
[2020-12-14 01:32] VITALS: BP 119/74
[2020-12-14] MEDS: ENOXAPARIN 30 MG/0.3 ML SQ SCH ×2 (06:00→18:00)
[2020-12-14 06:04] LABS: CREATININE 0.67 mg/dL (0.55-1.02)
[2020-12-14] MEDS: OxyconTIN ER 15 MG TAB.ER PO SCH ×2 (06:05→17:58)
[2020-12-14] MEDS: metFORMIN XR 500 MG TAB.ER.24H PO SCH (08:00)
[2020-12-14 08:05] VITALS: BP 96/55
[2020-12-14] MEDS ORDERED: PROMETHAZINE 25 MG/ML, 1ML IVPush PRN (09:00)
[2020-12-14] MEDS ORDERED: FENTANYL PF 100 MCG/2ML IV PRN ×2 (09:00→16:00)
[2020-12-14] MEDS ORDERED: OXYcodone 5 MG/5 ML ORAL.SOL UDC PO PRN ×2 (09:00→16:00)
[2020-12-14] MEDS ORDERED: ONDANSETRON 2MG/ML, 2ML IVPush PRN ×2 (09:00→16:00)
[2020-12-14] MEDS ORDERED: hydrALAzine 20 MG/ML, 1ML IV PRN ×2 (09:00→16:00)
[2020-12-14] MEDS ORDERED: HYDROmorphone 1 MG/ML, 1ML INJ IVPush PRN ×2 (09:00→16:00)
[2020-12-14] MEDS ORDERED: ACETAMINOPHEN 325 MG TABLET PO PRN ×2 (09:00→16:00)
[2020-12-14] MEDS: SENNA/DOCUSATE TABLET PO SCH (09:00)
[2020-12-14] MEDS ORDERED: EPHEDRINE 50 MG/ML, 1ML IVPush PRN (09:00)
[2020-12-14] MEDS ORDERED: LABETALOL 5MG/ML, 20ML IV PRN ×2 (09:00→16:00)
[2020-12-14] MEDS: GABAPENTIN 300 MG CAPSULE PO SCH ×2 (10:02→17:58)
[2020-12-14] MEDS: ASCORBIC ACID 500 MG TABLET PO SCH ×2 (10:02→17:58)
[2020-12-14] MEDS: MULTIVITAMIN 1 TABLET PO SCH (10:02)
[2020-12-14] MEDS: TORSEMIDE 20 MG TABLET PO SCH (10:02)
[2020-12-14] MEDS: ZINC SULFATE 220 MG CAPSULE PO SCH (10:02)
[2020-12-14] MEDS: BUSPIRONE 10 MG TABLET PO SCH (10:02)
[2020-12-14 12:05] VITALS: BP 96/56
[2020-12-14] MEDS ORDERED: CHLORHEXIDINE 15 ML UDC ONE (15:07)
[2020-12-14] MEDS ORDERED: CHLORHEXIDINE 15 ML UDC PO ONE (15:30)
[2020-12-14] MEDS ORDERED: BUPIVACAINE/PF 0.5% ONE (15:37)
[2020-12-14] MEDS ORDERED: EPINEPHRINE 1 MG/ML, 1ML ONE (15:38)
[2020-12-14] MEDS ORDERED: PROPOFOL 10 MG/ML, 20ML ONE ×3 (15:58)
[2020-12-14] MEDS ORDERED: HALOPERIDOL 5 MG/ML IV PRN (16:00)
[2020-12-14] MEDS ORDERED: MEPERIDINE/PF 25MG/0.5ML IVPush PRN (16:00)
[2020-12-14] MEDS ORDERED: morphine SULFATE 10 MG/ML, 1ML IVPush PRN (16:00)
[2020-12-14] MEDS ORDERED: KETAMINE 10 MG/ML, 20ML ONE (16:12)
[2020-12-14] MEDS ORDERED: FENTANYL PF 100 MCG/2ML ONE (16:13)
[2020-12-14] MEDS ORDERED: HYDROmorphone 1 MG/ML, 1ML INJ ONE (16:19)
[2020-12-14] MEDS ORDERED: METOPROLOL 1 MG/ML, 5ML IV ONE (18:00)
[2020-12-14 19:39] VITALS: BP 136/94
[2020-12-14] MEDS: HYDROmorphone 1 MG/ML, 1ML INJ IV PRN (20:35)
[2020-12-15 00:28] VITALS: BP 106/68
[2020-12-15] MEDS: GABAPENTIN 300 MG CAPSULE PO SCH ×2 (01:32→07:24)
[2020-12-15] MEDS: MEROPENEM 2 GM in SODIUM CHLORIDE 0.9% 100 ML IV SCH ×2 (01:32→11:49)
[2020-12-15] MEDS: HYDROmorphone 1 MG/ML, 1ML INJ IV PRN ×3 (01:32→11:49)
[2020-12-15] MEDS: OxyconTIN ER 15 MG TAB.ER PO SCH (05:46)
[2020-12-15] MEDS: ENOXAPARIN 30 MG/0.3 ML SQ SCH (06:00)
[2020-12-15 06:55] VITALS: BP 96/56
[2020-12-15] MEDS: MULTIVITAMIN 1 TABLET PO SCH (07:24)
[2020-12-15] MEDS: metFORMIN XR 500 MG TAB.ER.24H PO SCH (07:25)
[2020-12-15] MEDS: ASCORBIC ACID 500 MG TABLET PO SCH (07:25)
[2020-12-15] MEDS: BUSPIRONE 10 MG TABLET PO SCH (07:25)
[2020-12-15] MEDS: SENNA/DOCUSATE TABLET PO SCH (07:25)
[2020-12-15] MEDS: TORSEMIDE 20 MG TABLET PO SCH (07:25)
[2020-12-15] MEDS: ZINC SULFATE 220 MG CAPSULE PO SCH (07:25)
[2020-12-15] MEDS: OXYcodone IR 5MG TABLET PO PRN (07:26)
[2020-12-15] MEDS: LIDOCAINE 4% TOPICAL SOLUTION 50 ML TP SCH (09:00)
[2020-12-15] MEDS ORDERED: CEPH-376 PO (13:15)
[2020-12-15] MEDS ORDERED: OXYC5TAB98 PO (13:15)
[2020-12-15] MEDS ORDERED: TORS20TA2 PO (13:15)
[2020-12-15] MEDS ORDERED: OXYC15TA60 PO (13:15)
[2020-12-15 13:46] VITALS: BP 123/79
== END 2020-12-15 16:03 | disposition home or self-care (01) | DRG 383 ==
LOC: ED 13:37 → EDIP 14:27 → 4WST 14:45 → 3N 12-06 02:48
PROVIDERS: ADMIT Family Medicine; ATTEND Family Medicine
PROC: 0JBN3ZX Excision of Right Lower Leg Subcutaneous Tissue and Fascia, Percutaneous Approach, Diagnostic (ICD-10-PCS; principal; 2020-12-14 16:00)
DX: L03.115 Cellulitis of right lower limb (principal); E87.2 Acidosis; E87.8 Other disorders of electrolyte and fluid balance, not elsewhere classified; E66.01 Morbid (severe) obesity due to excess calories; B96.5 Pseudomonas (aeruginosa) (mallei) (pseudomallei) as the cause of diseases classified elsewhere; B95.61 Methicillin susceptible Staphylococcus aureus infection as the cause of diseases classified elsewhere; E11.9 Type 2 diabetes mellitus without complications; I87.2 Venous insufficiency (chronic) (peripheral); I87.8 Other specified disorders of veins; Z16.23 Resistance to quinolones and fluoroquinolones; I10 Essential (primary) hypertension; G89.29 Other chronic pain; F32.9 Major depressive disorder, single episode, unspecified; L97.919 Non-pressure chronic ulcer of unspecified part of right lower leg with unspecified severity; Z20.822 Contact with and (suspected) exposure to COVID-19; F41.1 Generalized anxiety disorder; Z91.19 Patient's noncompliance with other medical treatment and regimen; Z83.3 Family history of diabetes mellitus; Z82.5 Family history of asthma and other chronic lower respiratory diseases; Z82.49 Family history of ischemic heart disease and other diseases of the circulatory system; Z79.891 Long term (current) use of opiate analgesic; Z68.45 Body mass index [BMI] 70 or greater, adult
CPT/HCPCS: 36415; 73590; 84145; 99285; S0020; 71045; 80048; 80053; 81025; 82040; 82565; 83605; 84484; 85025; 85651; 86140; 87040; 87070; 87077; 87186; 87205; 87635; 88305; 93005; 97597; 97598; G0378; J0171; J1170; J1940; J2185; J2704; J2270; J7030

== ENCOUNTER → 2020-11-20 | Outpatient (CLI) | payer MEDICAID | END | disposition home or self-care (01) | LOC: WOUND 09:06 | PROVIDERS: ATTEND Internal Medicine | DX: S81.831D Puncture wound without foreign body, right lower leg, subsequent encounter (principal); L97.821 Non-pressure chronic ulcer of other part of left lower leg limited to breakdown of skin; L97.212 Non-pressure chronic ulcer of right calf with fat layer exposed; I89.0 Lymphedema, not elsewhere classified; I87.8 Other specified disorders of veins; L84 Corns and callosities; I10 Essential (primary) hypertension; F41.9 Anxiety disorder, unspecified; F11.20 Opioid dependence, uncomplicated; G89.29 Other chronic pain; E66.01 Morbid (severe) obesity due to excess calories; Z68.44 Body mass index [BMI] 60.0-69.9, adult; Z91.19 Patient's noncompliance with other medical treatment and regimen; X58.XXXD Exposure to other specified factors, subsequent encounter | CPT/HCPCS: 97597; 97598 ==

== ENCOUNTER → 2020-12-19 | Outpatient (CLI) | payer MEDICAID ==
[~2020-12-19] MED LIST changes: +CEPH-376 PO; +OXYC15TA60 PO; +OXYC5TAB98 PO; +TORS20TA2 PO
== END | disposition home or self-care (01) ==
LOC: WOUND 11:01
PROVIDERS: ATTEND Nurse Practitioner Family
DX: S81.801D Unspecified open wound, right lower leg, subsequent encounter (principal); L97.212 Non-pressure chronic ulcer of right calf with fat layer exposed; I89.0 Lymphedema, not elsewhere classified; L84 Corns and callosities; I10 Essential (primary) hypertension; F11.20 Opioid dependence, uncomplicated; G89.29 Other chronic pain; F41.1 Generalized anxiety disorder; I87.2 Venous insufficiency (chronic) (peripheral); A49.01 Methicillin susceptible Staphylococcus aureus infection, unspecified site; F32.9 Major depressive disorder, single episode, unspecified; E66.01 Morbid (severe) obesity due to excess calories; Z68.44 Body mass index [BMI] 60.0-69.9, adult; Z91.19 Patient's noncompliance with other medical treatment and regimen; Z20.822 Contact with and (suspected) exposure to COVID-19; X58.XXXD Exposure to other specified factors, subsequent encounter
CPT/HCPCS: 99214

== ENCOUNTER → 2021-01-01 | Outpatient (CLI) | payer MEDICAID | END | disposition home or self-care (01) | LOC: WOUND 09:45 | PROVIDERS: ATTEND Internal Medicine | DX: E11.622 Type 2 diabetes mellitus with other skin ulcer (principal); L97.212 Non-pressure chronic ulcer of right calf with fat layer exposed; S81.801D Unspecified open wound, right lower leg, subsequent encounter; E66.01 Morbid (severe) obesity due to excess calories; R60.9 Edema, unspecified; I89.0 Lymphedema, not elsewhere classified; L84 Corns and callosities; I10 Essential (primary) hypertension; F11.20 Opioid dependence, uncomplicated; G89.29 Other chronic pain; F41.1 Generalized anxiety disorder; I87.2 Venous insufficiency (chronic) (peripheral); A49.01 Methicillin susceptible Staphylococcus aureus infection, unspecified site; F32.9 Major depressive disorder, single episode, unspecified; Z68.44 Body mass index [BMI] 60.0-69.9, adult; Z20.822 Contact with and (suspected) exposure to COVID-19; Z91.19 Patient's noncompliance with other medical treatment and regimen; X58.XXXD Exposure to other specified factors, subsequent encounter | CPT/HCPCS: 11042; 11045 ==

== ENCOUNTER → 2021-01-08 | Outpatient (CLI) | payer MEDICAID | END | disposition home or self-care (01) | LOC: WOUND 10:32 | PROVIDERS: ATTEND Internal Medicine | DX: E11.622 Type 2 diabetes mellitus with other skin ulcer (principal); L97.212 Non-pressure chronic ulcer of right calf with fat layer exposed; S81.801D Unspecified open wound, right lower leg, subsequent encounter; E66.01 Morbid (severe) obesity due to excess calories; R60.9 Edema, unspecified; I89.0 Lymphedema, not elsewhere classified; L84 Corns and callosities; I10 Essential (primary) hypertension; F11.20 Opioid dependence, uncomplicated; G89.29 Other chronic pain; F41.1 Generalized anxiety disorder; I87.2 Venous insufficiency (chronic) (peripheral); A49.01 Methicillin susceptible Staphylococcus aureus infection, unspecified site; F32.9 Major depressive disorder, single episode, unspecified; Z68.44 Body mass index [BMI] 60.0-69.9, adult; Z20.822 Contact with and (suspected) exposure to COVID-19; Z91.19 Patient's noncompliance with other medical treatment and regimen; X58.XXXD Exposure to other specified factors, subsequent encounter | CPT/HCPCS: 11042; 11045 ==

== ENCOUNTER 2021-01-15 08:30 | Outpatient (CLI) | payer MEDICAID | END 2021-01-15 23:59 | disposition home or self-care (01) | LOC: WOUND 08:30 | PROVIDERS: ATTEND Internal Medicine | DX: S81.801D Unspecified open wound, right lower leg, subsequent encounter (principal); E11.622 Type 2 diabetes mellitus with other skin ulcer; L97.212 Non-pressure chronic ulcer of right calf with fat layer exposed; E66.01 Morbid (severe) obesity due to excess calories; R60.9 Edema, unspecified; I89.0 Lymphedema, not elsewhere classified; L84 Corns and callosities; I10 Essential (primary) hypertension; F11.20 Opioid dependence, uncomplicated; G89.29 Other chronic pain; F41.1 Generalized anxiety disorder; I87.2 Venous insufficiency (chronic) (peripheral); A49.01 Methicillin susceptible Staphylococcus aureus infection, unspecified site; F32.9 Major depressive disorder, single episode, unspecified; Z68.44 Body mass index [BMI] 60.0-69.9, adult; Z20.822 Contact with and (suspected) exposure to COVID-19; Z91.19 Patient's noncompliance with other medical treatment and regimen; X58.XXXD Exposure to other specified factors, subsequent encounter | CPT/HCPCS: 11042; 11045 ==